=== PATIENT | male | born 1955 | race Hispanic/Latino ===

== ENCOUNTER 2019-11-19 10:09 | Inpatient (IN) | payer MEDICARE, OTHER ==
[~2019-11-19] VITALS: Ht 160 cm; Wt 70.3 kg
[2019-11-19] MEDS ORDERED: SODIUM CHLORIDE 0.9% 1000ML 1,000 ML IV STA (10:11)
[2019-11-19] MEDS ORDERED: ONDANSETRON HCL INJ 2MG/ML 2ML 2 MG/ML VIAL IV STA (10:11)
--- OUTSIDE RECORDS SUMMARY | 2019-11-19 10:12 | XMS REPORT ---
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 Allergies, Adverse Reactions, Alerts Allergy Name Allergy Type Status Severity Reaction(s) Onset Date Inactive Date Treating Clinician Comments No Known Allergies DA Active U 2019-01-23 00:00:00 Medications This patient has no known medications. Results Test Description Test Time Test Comments Text Results Atomic Results Result Comments GLUBED 2019-01-26 12:17:00 GLUBED (test code=GLUBED) 126 mg/dL 74-106 Performed by certified coal equipment operator at [facility] [id number] 08:03:00* Test Item Value Reference Range Comments GLUBED (test code=GLUBED) 163 mg/dL 74-106 Performed by certified coal equipment operator at [facility] [id number] 20:29:00* Test Item Value Reference Range Comments GLUBED (test code=GLUBED) 173 mg/dL 74-106 Performed by certified coal equipment operator at [facility] [id number] 16:41:00* Test Item Value Reference Range Comments GLUBED (test code=GLUBED) 140 mg/dL 74-106 Performed by certified coal equipment operator at [facility] [id number] 12:50:00* Test Item Value Reference Range Comments GLUBED (test code=GLUBED) 189 mg/dL 74-106 Performed by certified coal equipment operator at [facility] [id number] 08:22:00* Test Item Value Reference Range Comments GLUBED (test code=GLUBED) 129 mg/dL 74-106 Performed by certified coal equipment operator at [facility] BASIC METABOLIC [id number] 07:55:00* Test Item Value Reference Range Comments SODIUM (test code=NA) 137 mmol/L 136-145 POTASSIUM (test code=K) 3.2 mmol/L 3.5-5.1 CHLORIDE (test code=CL) 107.0 mmol/L 98-107 CARBON DIOXIDE (test code=CO2) 19.0 mmol/L 21-32 ANION GAP (test code=GAP) 14.2 10-20 GLUCOSE (test code=GLU) 126 mg/dL 74-106 BLOOD UREA NITROGEN (test code=BUN) 12 mg/dL 7-18 GLOMERULAR FILTRATION RATE (test code=GFR) > 60 mL/min >=60 Estimated GFR by using Modified MDRD formula.Chronic kidney disease is defined as either kidney damageor GFR <60 mL/min/1.73 m2 for >3 months. CREATININE (test code=CREAT) 1.00 mg/dL 0.7-1.3 BUN/CREATININE RATIO (test code=BUN/CREA) 12.0 10-20 CALCIUM (test code=CA) 8.3 mg/dL 8.5-10.1 BASIC METABOLIC [id number] 07:38:00* Test Item Value Reference Range Comments SODIUM (test code=NA) 137 mmol/L 136-145 POTASSIUM (test code=K) 3.2 mmol/L 3.5-5.1 CHLORIDE (test code=CL) 107.0 mmol/L 98-107 CARBON DIOXIDE (test code=CO2) mmol/L 21-32 ANION GAP (test code=GAP) 10-20 GLUCOSE (test code=GLU) mg/dL 74-106 BLOOD UREA NITROGEN (test code=BUN) mg/dL 7-18 GLOMERULAR FILTRATION RATE (test code=GFR) mL/min >=60 CREATININE (test code=CREAT) mg/dL 0.7-1.3 BUN/CREATININE RATIO (test code=BUN/CREA) 10-20 CALCIUM (test code=CA) 8.3 mg/dL 8.5-10.1 CBC W/AUTO [id number] 07:04:00* Test Item Value Reference Range Comments WHITE BLOOD CELL (test code=WBC) 10.1 K/mm3 4.5-12.5 RED BLOOD CELL (test code=RBC) 4.73 mill/mm3 4.0-5.8 HEMOGLOBIN (test code=HGB) 16.1 gram/dL 13.0-17.5 RESULT VERIFIED BY REPEAT ANALYSIS HEMATOCRIT (test code=HCT) 45.7 % 42.0-52.0 MEAN CELL VOLUME (test code=MCV) 96.6 fL 80-98 MEAN CELL HGB (test code=MCH) 34.0 picogram 27.0-33.0 MEAN CELL HGB CONCETRATION (test code=MCHC) 35.2 gram/dL 33.0-36.0 RED CELL DISTRIBUTION WIDTH (test code=RDW) 11.8 % 11.6-16.2 RED CELL DISTRIBUTION WIDTH SD (test code=RDW-SD) 42.0 fL 37.0-51.0 PLATELET COUNT (test code=PLT) 179 K/mm3 150-450 MEAN PLATELET VOLUME (test code=MPV) 10.4 fL 6.7-11.0 NEUTROPHIL % (test code=NT%) 73.5 % 39.0-69.0 IMMATURE GRANULOCYTE % (test code=IG%) 0.7 % 0.0-5.0 LYMPHOCYTE % (test code=LY%) 10.8 % 25.0-55.0 MONOCYTE % (test code=MO%) 14.0 % 0.0-10.0 EOSINOPHIL % (test code=EO%) 0.7 % 0.0-5.0 BASOPHIL % (test code=BA%) 0.3 % 0.0-1.0 NUCLEATED RBC % (test code=NRBC%) 0.0 % 0-0 NEUTROPHIL # (test code=NT#) 7.43 K/mm3 1.8-7.7 IMMATURE GRANULOCYTE # (test code=IG#) 0.07 x10 3/uL 0-0.03 LYMPHOCYTE # (test code=LY#) 1.09 K/mm3 1.0-5.0 MONOCYTE # (test code=MO#) 1.41 K/mm3 0-0.8 EOSINOPHIL # (test code=EO#) 0.07 K/mm3 0.0-0.5 BASOPHIL # (test code=BA#) 0.03 K/mm3 0.0-0.2 NUCLEATED RBC # (test code=NRBC#) 0.00 K/mm3 0.0-0.1 MANUAL DIFF REQUIRED (test code=MDIFF) NO [id number] 21:08:00* Test Item Value Reference Range Comments GLUBED (test code=GLUBED) 187 mg/dL 74-106 Performed by certified coal equipment operator at [facility] [id number] 17:16:00* Test Item Value Reference Range Comments GLUBED (test code=GLUBED) 165 mg/dL 74-106 Performed by certified coal equipment operator at [facility] [id number] 12:20:00* Test Item Value Reference Range Comments GLUBED (test code=GLUBED) 210 mg/dL 74-106 Performed by certified coal equipment operator at [facility] [id number] 08:55:00* Test Item Value Reference Range Comments GLUBED (test code=GLUBED) 149 mg/dL 74-106 Performed by certified coal equipment operator at [facility] AG STREPTOCOCCUS [id number] 06:22:00* Test Item Value Reference Range Comments AG STREPTOCOCCUS PNEUMO (test code=STREPPNAG) NEGATIVE NEGATIVE LEGIONELLA ANTIGEN,URINE,[id number] 06:22:00* Test Item Value Reference Range Comments LEGIONELLA ANTIGEN,URINE,JUSTICE (test code=LEGAGUR) NEGATIVE NEGATIVE URINALYSIS [id number] 03:45:00* Test Item Value Reference Range Comments UA COLOR (test code=COLU) YELLOW YELLOW UA APPEARANCE (test code=APPU) CLEAR CLEAR UA GLUCOSE DIPSTICK (test code=DGLUU) NEGATIVE mg/dL NEGATIVE UA BILIRUBIN DIPSTICK (test code=BILU) NEGATIVE mg/dL NEGATIVE UA KETONE DIPSTICK (test code=KETU) NEGATIVE mg/dL NEGATIVE UA SPECIFIC GRAVITY (test code=SGU) 1.011 1.001-1.035 UA BLOOD DIPSTICK (test code=NASRA) 2+ (Moderate) mg/dL NEGATIVE UA PH DIPSTICK (test code=MAMADOU) 5.0 5.0-8.0 UA PROTEIN DIPSTICK (test code=PROU) 30 (1+) mg/dL NEGATIVE UA UROBILINIOGEN DIPSTICK (test code=URO) NEGATIVE mg/dL NEGATIVE UA NITRITE DIPSTICK (test code=NADEGE) NEGATIVE NEGATIVE UA LEUKOCYTE ESTERASE DIPSTICK (test code=LEUU) 1+ uL NEGATIVE UA WBC (test code=WBCU) >50 per HPF 0-5 UA RBC (test code=RBCU) 3-5 #/HPF 0-5 UA EPITHELIAL CELLS (test code=EPIU) FEW per HPF FEW UA BACTERIA (test code=BACU) FEW #/HPF NONE UA MUCUS (test code=MUCU) FEW #/LPF FEW Urine Source? Clean CatchURINALYSIS [id number] 03:08:00* Test Item Value Reference Range Comments UA COLOR (test code=COLU) YELLOW YELLOW UA APPEARANCE (test code=APPU) CLEAR CLEAR UA GLUCOSE DIPSTICK (test code=DGLUU) NEGATIVE mg/dL NEGATIVE UA BILIRUBIN DIPSTICK (test code=BILU) NEGATIVE mg/dL NEGATIVE UA KETONE DIPSTICK (test code=KETU) NEGATIVE mg/dL NEGATIVE UA SPECIFIC GRAVITY (test code=SGU) 1.011 1.001-1.035 UA BLOOD DIPSTICK (test code=NASRA) 2+ (Moderate) mg/dL NEGATIVE UA PH DIPSTICK (test code=MAMADOU) 5.0 5.0-8.0 UA PROTEIN DIPSTICK (test code=PROU) 30 (1+) mg/dL NEGATIVE UA UROBILINIOGEN DIPSTICK (test code=URO) NEGATIVE mg/dL NEGATIVE UA NITRITE DIPSTICK (test code=NADEGE) NEGATIVE NEGATIVE UA LEUKOCYTE ESTERASE DIPSTICK (test code=LEUU) uL NEGATIVE UA WBC (test code=WBCU) >50 per HPF 0-5 UA RBC (test code=RBCU) 3-5 #/HPF 0-5 UA EPITHELIAL CELLS (test code=EPIU) FEW per HPF FEW UA BACTERIA (test code=BACU) FEW #/HPF NONE UA MUCUS (test code=MUCU) FEW #/LPF FEW Urine Source? Clean [id number] 23:11:00* Test Item Value Reference Range Comments TROPONIN-I (test code=TROPI) 0.294 ng/mL 0-0.045 Results called to [id number] by PAUL.[email or web address] 01/23/19 2310Critical results verified and read back by Nurse? Y COMMENTS TO SKID MAN: COLLECT 3 HOURS AFTER PREVIOUS [id number] 22:52:00* Test Item Value Reference Range Comments GLYCOSYLATED HEMOGLOBIN (HA1C) (test code=GLYHGB) 7.0 % HbA1 4.8-6.0 ESTIMATED AVERAGE GLUCOSE (test code=EAG) 154 MG/DL [id number] 21:24:00* Test Item Value Reference Range Comments GLUBED (test code=GLUBED) 150 mg/dL 74-106 Performed by certified coal equipment operator at [facility] LIPID PROFILE (CORONARY RISK)2019-01-23 21:17:00* Test Item Value Reference Range Comments TRIGLYCERIDES (test code=TRIG) 96 mg/dL 20-150 CHOLESTEROL (test code=CHOL) 118 mg/dL 0-200 CHOLESTEROL/HDL RATIO (test code=CHOLHDL) 3.0 RATIO 0-4.9 RISK ASSOCIATED WITH CHOL/HDL RATIOS: Risk Male Female1/2 AVERAGE 3.43 3.27AVERAGE 4.97 4.442X AVERAGE 9.55 7.053X AVERAGE 23.39 11.04 REFERENCE VALUE IS RELATED TO RISK LEVELS ASRECOMMENDED BY THE [facility]. HEART, LUNG, AND BLOOD INST. HDL CHOLESTEROL (test code=HDL) 39 mg/dL 40-60 LIPOPROTEIN LDL (test code=LDL) 62 mg/dL 100-129 Reference Interval: mg/dL mmol/L Optimal <100 <2.6Near/above optimal 100-129 2.6- 3.3Borderline High 130-159 3.4-4.1High 160-189 4.1-4.9Very High >=190 >=4.9=========This LDL result is a direct measurement.========= LACTIC [id number] 17:22:00* Test Item Value Reference Range Comments LACTIC ACID (test code=LACT) 1.4 MMOL/L 0.4-1.9 [id number] 17:22:00* Test Item Value Reference Range Comments TROPONIN-I (test code=TROPI) 0.18 ng/mL 0.00-0.056 Results called to ROBERTH VenturaLAB.AV1 01/23/19 1722Critical results verified and read back by Nurse? Y COMMENTS TO SKID MAN: COLLECT 3 HOURS AFTER PREVIOUS SAMPLEPROCALCITONIN (PCT)2019-01-23 16:38:00* Test Item Value Reference Range Comments PROCALCITONIN (PCT) (test code=PROCAL) 0.22 ng/ml Concentration Interpretation (ng/mL) <0.51 Sepsis is not likely. Local bacterial infection is possible. (LOW RISK for progression to Sepsis) 0.51 - 2.00 Sepsis is possible, but other conditions are known to elevate PCT as well. (MODERATE RISK for progression to Sepsis) > 2.00 Sepsis is likely, unless other causes are known. (HIGH RISK for progression to Severe Sepsis or Septic Shock) 10.00 High likelihood of Severe Sepsis or Septic or higher Shock. *Increased PCT levels may not always be related to systemic bacterial infection.*Low PCT levels do not automatically exclude the presence of bacterial infection.*All results should be interpreted taking into account the patients history. CBC W/MANUAL [id number] 15:02:00* Test Item Value Reference Range Comments WHITE BLOOD CELL (test code=WBC) 12.0 K/mm3 4.5-12.5 RED BLOOD CELL (test code=RBC) 5.48 mill/mm3 4.0-5.8 HEMOGLOBIN (test code=HGB) 18.8 gram/dL 13.0-17.5 HEMATOCRIT (test code=HCT) 52.2 % 42.0-52.0 MEAN CELL VOLUME (test code=MCV) 95.3 fL 80-98 MEAN CELL HGB (test code=MCH) 34.3 picogram 27.0-33.0 MEAN CELL HGB CONCETRATION (test code=MCHC) 36.0 gram/dL 33.0-36.0 RED CELL DISTRIBUTION WIDTH (test code=RDW) 12.1 % 11.6-16.2 RED CELL DISTRIBUTION WIDTH SD (test code=RDW-SD) 41.6 fL 39.2-49.5 PLATELET COUNT (test code=PLT) 219 K/mm3 150-450 MEAN PLATELET VOLUME (test code=MPV) 10.2 fL 6.7-11.0 NEUTROPHIL # (test code=NT#) 10.48 K/mm3 1.8-7.7 LYMPHOCYTE # (test code=LY#) 0.25 K/mm3 1.0-5.0 MONOCYTE # (test code=MO#) 1.28 K/mm3 0-0.8 EOSINOPHIL # (test code=EO#) 0.01 K/mm3 0.0-0.5 BASOPHIL # (test code=BA#) 0.02 K/mm3 0.0-0.2 MANUAL DIFF REQUIRED (test code=MDIFF) YES STAIN ACCEPTABILITY (test code=STN ACCEPTABLE) STAIN ACCEPTABLE TOTAL CELLS COUNTED (test code=TCC) 100 #CELLS SEGMENTED NEUTROPHILS (test code=SEG) 89 % 39-69 LYMPHOCYTE (test code=LYMPH) 2 % 25-55 MONOCYTE (test code=MON) 9 % 0-10 MORPHOLOGY COMMENT (test code=MOC) NORMAL PLATELET ESTIMATE (test code=PLTEST) ADEQUATE PLATELET MORPHOLOGY (test code=PLTMORPH) SIZE VARIABLE - XR CHEST 1 [id number] 14:46:00 Name: SHOBHA SILVA [facility] : 1955 Age/S:63 /M [address] [facility] Unit#:[id number] Loc: [place] [address] Phys: Tomás Solis MD Dis Date: PHONE #: [phone] Status: REG ER FAX #: [phone] Exam Date: 01/23/2019 Reason: CODE SEPSIS EXAMS: CPT CODE: [id number] XR CHEST 1 V [id number] REASON FOR EXAM: CODE SEPSIS, weakness, dizziness EXAM ORDER DATE: 01/23/2019 2:08 PM Ordering M.D.: Tomás Solis MD PROCEDURE: - XR CHEST 1 V COMPARISON: FINDINGS: Portable AP frontal view of the chest obtained at 2:28 PM shows patchy airspace opacities of the left base. There is no evidence of effusion. The heart size is minimally enlarged. Pulmonary vasculatures are minimally congested. IMP RESSION: Patchy left basilar atelectasis at 1446 Reported and signed by: Prosper Sarmiento M.D. CC: Tomás Solis MD Technologist: SABRINA SALAS, RT(R),CT Trnscrpt Data: 01/23/2019 (1446) t.[email or web address] Orig Print D/T: S: 01/23/2019 (9350) PAGE 1 Signed Report B-TYPE NATRIURETIC [id number] 14:44:00* Test Item Value Reference Range Comments B-TYPE NATRIURETIC PEPTIDE (test code=BNP) 237 pg/mL 0-100 LACTIC [id number] 14:34:00* Test Item Value Reference Range Comments LACTIC ACID (test code=LACT) 2.1 MMOL/L 0.4-1.9 Results called to ROBERTH Short V.LAB.AV1 01/23/19 1434Critical results verified and read back by Nurse? Y BASIC METABOLIC [id number] 14:33:00* Test Item Value Reference Range Comments SODIUM (test code=NA) 133 mmol/L 135-148 POTASSIUM (test code=K) 3.3 mmol/L 3.5-5.1 CHLORIDE (test code=CL) 99 mmol/L 101-109 CARBON DIOXIDE (test code=CO2) 16.9 mmol/L 21-32 ANION GAP (test code=GAP) 20 mmol/L 10-20 GLUCOSE (test code=GLU) 250 mg/dL 74-106 BLOOD UREA NITROGEN (test code=BUN) 10 mg/dL 3-21 GLOMERULAR FILTRATION RATE (test code=GFR) 46 mL/min >=60 Estimated GFR by using Modified MDRD formula.Chronic kidney disease is defined as either kidney damageor GFR <60 mL/min/1.73 m2 for >3 months. CREATININE (test code=CREAT) 1.52 mg/dL 0.55-1.3 BUN/CREATININE RATIO (test code=BUN/CREA) 6.6 10-20 CALCIUM (test code=CA) 8.7 mg/dL 8.4-10.2 HEPATIC FUNCTION [id number] 14:33:00* Test Item Value Reference Range Comments TOTAL PROTEIN (test code=PROT) 8.5 g/dL 6.5-8.4 ALBUMIN (test code=ALB) 3.4 g/dL 3.4-4.8 GLOBULIN (test code=GLOB) 5.1 G/DL 1-10 ALBUMIN/GLOBULIN RATIO (test code=A/G) 0.7 RATIO 0.75-1.50 BILIRUBIN TOTAL (test code=BILT) 0.80 mg/dL 0.0-1.0 BILIRUBIN DIRECT (test code=BILD) 0.20 mg/dL 0.0-0.30 SGOT/AST (test code=AST) 45 U/L 6-32 SGPT/ALT (test code=ALT) 87 U/L 12-78 Note: Change in REFERENCE RANGE due to new reagent method. ALKALINE PHOSPHATASE TOTAL (test code=ALKP) 89 U/L 38-126 [id number] 14:33:00* Test Item Value Reference Range Comments LIPASE (test code=LIP) 165 U/L 128-270 [id number] 14:33:00* Test Item Value Reference Range Comments TROPONIN-I (test code=TROPI) 0.19 ng/mL 0.00-0.056 Results called to ROBERTH VenturaLAB.AV1 01/23/19 1433Critical results verified and read back by Nurse? Y CBC W/MANUAL [id number] 14:25:00* Test Item Value Reference Range Comments WHITE BLOOD CELL (test code=WBC) 12.0 K/mm3 4.5-12.5 RED BLOOD CELL (test code=RBC) 5.48 mill/mm3 4.0-5.8 HEMOGLOBIN (test code=HGB) 18.8 gram/dL 13.0-17.5 HEMATOCRIT (test code=HCT) 52.2 % 42.0-52.0 MEAN CELL VOLUME (test code=MCV) 95.3 fL 80-98 MEAN CELL HGB (test code=MCH) 34.3 picogram 27.0-33.0 MEAN CELL HGB CONCETRATION (test code=MCHC) 36.0 gram/dL 33.0-36.0 RED CELL DISTRIBUTION WIDTH (test code=RDW) 12.1 % 11.6-16.2 RED CELL DISTRIBUTION WIDTH SD (test code=RDW-SD) 41.6 fL 39.2-49.5 PLATELET COUNT (test code=PLT) 219 K/mm3 150-450 MEAN PLATELET VOLUME (test code=MPV) 10.2 fL 6.7-11.0 NEUTROPHIL # (test code=NT#) 10.48 K/mm3 1.8-7.7 LYMPHOCYTE # (test code=LY#) 0.25 K/mm3 1.0-5.0 MONOCYTE # (test code=MO#) 1.28 K/mm3 0-0.8 EOSINOPHIL # (test code=EO#) 0.01 K/mm3 0.0-0.5 BASOPHIL # (test code=BA#) 0.02 K/mm3 0.0-0.2 MANUAL DIFF REQUIRED (test code=MDIFF) YES STAIN ACCEPTABILITY (test code=STN ACCEPTABLE) TOTAL CELLS COUNTED (test code=TCC) #CELLS SEGMENTED NEUTROPHILS (test code=SEG) % 39-69 LYMPHOCYTE (test code=LYMPH) % 25-55 MONOCYTE (test code=MON) % 0-10 MORPHOLOGY COMMENT (test code=MOC) PLATELET ESTIMATE (test code=PLTEST) PLATELET MORPHOLOGY (test code=PLTMORPH) CBC W/MANUAL [id number] 14:23:00* Test Item Value Reference Range Comments WHITE BLOOD CELL (test code=WBC) 12.0 K/mm3 4.5-12.5 RED BLOOD CELL (test code=RBC) 5.48 mill/mm3 4.0-5.8 HEMOGLOBIN (test code=HGB) 18.8 gram/dL 13.0-17.5 HEMATOCRIT (test code=HCT) 52.2 % 42.0-52.0 MEAN CELL VOLUME (test code=MCV) 95.3 fL 80-98 MEAN CELL HGB (test code=MCH) 34.3 picogram 27.0-33.0 MEAN CELL HGB CONCETRATION (test code=MCHC) 36.0 gram/dL 33.0-36.0 RED CELL DISTRIBUTION WIDTH (test code=RDW) 12.1 % 11.6-16.2 RED CELL DISTRIBUTION WIDTH SD (test code=RDW-SD) 41.6 fL 39.2-49.5 PLATELET COUNT (test code=PLT) 219 K/mm3 150-450 MEAN PLATELET VOLUME (test code=MPV) 10.2 fL 6.7-11.0 NEUTROPHIL # (test code=NT#) 10.48 K/mm3 1.8-7.7 LYMPHOCYTE # (test code=LY#) 0.25 K/mm3 1.0-5.0 MONOCYTE # (test code=MO#) 1.28 K/mm3 0-0.8 EOSINOPHIL # (test code=EO#) 0.01 K/mm3 0.0-0.5 BASOPHIL # (test code=BA#) 0.02 K/mm3 0.0-0.2 MANUAL DIFF REQUIRED (test code=MDIFF) YES STAIN ACCEPTABILITY (test code=STN ACCEPTABLE) TOTAL CELLS COUNTED (test code=TCC) #CELLS SEGMENTED NEUTROPHILS (test code=SEG) % 39-69 LYMPHOCYTE (test code=LYMPH) % 25-55 MONOCYTE (test code=MON) % 0-10 EOSINOPHIL (test code=EOS) % 0.0-5.0 CABOT RINGS (test code=CAB) MORPHOLOGY COMMENT (test code=MOC) PLATELET ESTIMATE (test code=PLTEST) PLATELET MORPHOLOGY (test code=PLTMORPH) CBC W/MANUAL [id number] 14:23:00* Test Item Value Reference Range Comments WHITE BLOOD CELL (test code=WBC) 12.0 K/mm3 4.5-12.5 RED BLOOD CELL (test code=RBC) 5.48 mill/mm3 4.0-5.8 HEMOGLOBIN (test code=HGB) 18.8 gram/dL 13.0-17.5 HEMATOCRIT (test code=HCT) 52.2 % 42.0-52.0 MEAN CELL VOLUME (test code=MCV) 95.3 fL 80-98 MEAN CELL HGB (test code=MCH) 34.3 picogram 27.0-33.0 MEAN CELL HGB CONCETRATION (test code=MCHC) 36.0 gram/dL 33.0-36.0 RED CELL DISTRIBUTION WIDTH (test code=RDW) 12.1 % 11.6-16.2 RED CELL DISTRIBUTION WIDTH SD (test code=RDW-SD) 41.6 fL 39.2-49.5 PLATELET COUNT (test code=PLT) 219 K/mm3 150-450 MEAN PLATELET VOLUME (test code=MPV) 10.2 fL 6.7-11.0 NEUTROPHIL # (test code=NT#) 10.48 K/mm3 1.8-7.7 LYMPHOCYTE # (test code=LY#) 0.25 K/mm3 1.0-5.0 MONOCYTE # (test code=MO#) 1.28 K/mm3 0-0.8 EOSINOPHIL # (test code=EO#) 0.01 K/mm3 0.0-0.5 BASOPHIL # (test code=BA#) 0.02 K/mm3 0.0-0.2 MANUAL DIFF REQUIRED (test code=MDIFF) YES STAIN ACCEPTABILITY (test code=STN ACCEPTABLE) TOTAL CELLS COUNTED (test code=TCC) #CELLS SEGMENTED NEUTROPHILS (test code=SEG) % 39-69 LYMPHOCYTE (test code=LYMPH) % 25-55 MONOCYTE (test code=MON) % 0-10 EOSINOPHIL (test code=EOS) % 0.0-5.0 CABOT RINGS (test code=CAB) MORPHOLOGY COMMENT (test code=MOC) PLATELET ESTIMATE (test code=PLTEST) PLATELET MORPHOLOGY (test code=PLTMORPH) CBC W/MANUAL [id number] 14:23:00* Test Item Value Reference Range Comments WHITE BLOOD CELL (test code=WBC) 12.0 K/mm3 4.5-12.5 RED BLOOD CELL (test code=RBC) 5.48 mill/mm3 4.0-5.8 HEMOGLOBIN (test code=HGB) 18.8 gram/dL 13.0-17.5 HEMATOCRIT (test code=HCT) 52.2 % 42.0-52.0 MEAN CELL VOLUME (test code=MCV) 95.3 fL 80-98 MEAN CELL HGB (test code=MCH) 34.3 picogram 27.0-33.0 MEAN CELL HGB CONCETRATION (test code=MCHC) 36.0 gram/dL 33.0-36.0 RED CELL DISTRIBUTION WIDTH (test code=RDW) 12.1 % 11.6-16.2 RED CELL DISTRIBUTION WIDTH SD (test code=RDW-SD) 41.6 fL 39.2-49.5 PLATELET COUNT (test code=PLT) 219 K/mm3 150-450 MEAN PLATELET VOLUME (test code=MPV) 10.2 fL 6.7-11.0 NEUTROPHIL # (test code=NT#) 10.48 K/mm3 1.8-7.7 LYMPHOCYTE # (test code=LY#) 0.25 K/mm3 1.0-5.0 MONOCYTE # (test code=MO#) 1.28 K/mm3 0-0.8 EOSINOPHIL # (test code=EO#) 0.01 K/mm3 0.0-0.5 BASOPHIL # (test code=BA#) 0.02 K/mm3 0.0-0.2 MANUAL DIFF REQUIRED (test code=MDIFF) YES STAIN ACCEPTABILITY (test code=STN ACCEPTABLE) TOTAL CELLS COUNTED (test code=TCC) #CELLS SEGMENTED NEUTROPHILS (test code=SEG) % 39-69 LYMPHOCYTE (test code=LYMPH) % 25-55 MONOCYTE (test code=MON) % 0-10 EOSINOPHIL (test code=EOS) % 0.0-5.0 MORPHOLOGY COMMENT (test code=MOC) PLATELET ESTIMATE (test code=PLTEST) PLATELET MORPHOLOGY (test code=PLTMORPH) CBC W/MANUAL [id number] 14:23:00* Test Item Value Reference Range Comments WHITE BLOOD CELL (test code=WBC) 12.0 K/mm3 4.5-12.5 RED BLOOD CELL (test code=RBC) 5.48 mill/mm3 4.0-5.8 HEMOGLOBIN (test code=HGB) 18.8 gram/dL 13.0-17.5 HEMATOCRIT (test code=HCT) 52.2 % 42.0-52.0 MEAN CELL VOLUME (test code=MCV) 95.3 fL 80-98 MEAN CELL HGB (test code=MCH) 34.3 picogram 27.0-33.0 MEAN CELL HGB CONCETRATION (test code=MCHC) 36.0 gram/dL 33.0-36.0 RED CELL DISTRIBUTION WIDTH (test code=RDW) 12.1 % 11.6-16.2 RED CELL DISTRIBUTION WIDTH SD (test code=RDW-SD) 41.6 fL 39.2-49.5 PLATELET COUNT (test code=PLT) 219 K/mm3 150-450 MEAN PLATELET VOLUME (test code=MPV) 10.2 fL 6.7-11.0 NEUTROPHIL # (test code=NT#) 10.48 K/mm3 1.8-7.7 LYMPHOCYTE # (test code=LY#) 0.25 K/mm3 1.0-5.0 MONOCYTE # (test code=MO#) 1.28 K/mm3 0-0.8 EOSINOPHIL # (test code=EO#) 0.01 K/mm3 0.0-0.5 BASOPHIL # (test code=BA#) 0.02 K/mm3 0.0-0.2 MANUAL DIFF REQUIRED (test code=MDIFF) YES STAIN ACCEPTABILITY (test code=STN ACCEPTABLE) TOTAL CELLS COUNTED (test code=TCC) #CELLS SEGMENTED NEUTROPHILS (test code=SEG) % 39-69 LYMPHOCYTE (test code=LYMPH) % 25-55 MONOCYTE (test code=MON) % 0-10 EOSINOPHIL (test code=EOS) % 0.0-5.0 CABOT RINGS (test code=CAB) MORPHOLOGY COMMENT (test code=MOC) PLATELET ESTIMATE (test code=PLTEST) PLATELET MORPHOLOGY (test code=PLTMORPH) [id number] 14:05:00* Test Item Value Reference Range Comments GLUBED (test code=GLUBED) 248 mg/dL 74-106 Performed by certified coal equipment operator [facility] Not[facility]~Notified Nurse~
[2019-11-19] MEDS ORDERED: DIATRIZOATE MEGL/DIATRIZOA SOD 30 ML BTL PO ONE (10:22)
[2019-11-19] MEDS ORDERED: DICYCLOMINE HCL 20 MG/2 ML VIAL IM ONE (10:30)
[2019-11-19 11:11] LABS: BASOPHILS # (AUTO) 0.1 (0.0-0.1); BASOPHILS % 0.4 % (0.0-1.0); EOSINOPHILS # (AUTO) 0.1 (0.0-0.4); EOSINOPHILS % 0.6 % (0.0-6.0); HEMATOCRIT 47.4 % (38.2-49.6); HEMOGLOBIN 17.2 g/dL (14.0-18.0); LYMPHOCYTES # (AUTO) 0.6 (1.0-3.2); LYMPHOCYTES % 4.3 % (18.0-39.1); MEAN CORPUSCULAR HGB CONC 36.3 g/dL (31-35); MEAN CORPUSCULAR VOLUME 90.8 fL (81-99); MONOCYTES # (AUTO) 2.3 (0.2-0.8); MONOCYTES % 16.6 % (4.4-11.3); NEUTROPHILS # (AUTO) 10.6 (2.1-6.9); PLATELET COUNT 231 x10e3/uL (140-360); RED BLOOD COUNT 5.22 x10e6/uL (4.3-5.7)
[2019-11-19 11:41] LABS: ALBUMIN 2.4 g/dL (3.5-5.0); ALBUMIN/GLOBULIN RATIO 0.5 (0.8-2.0); ANION GAP 16.5 mmol/L (8-16); CALCIUM 8.7 mg/dL (8.4-10.2); CREATININE, SERUM 2.28 mg/dL (0.72-1.25); POTASSIUM 3.5 mmol/L (3.5-5.1)
[2019-11-19 12:42] LABS: CLARITY,URINE CLOUDY (CLEAR); COLOR,URINE YELLOW (YELLOW)
[2019-11-19 12:45] LABS: LEUKOCYTE ESTERASE ,URINE LARGE (NEGATIVE); NITRITE,URINE NEGATIVE (NEGATIVE)
[2019-11-19 12:48] LABS: KETONES,URINE NEGATIVE (NEGATIVE); PROTEIN,URINE DIPSTICK 1+ (NEGATIVE)
[2019-11-19 12:49] LABS: BILIRUBIN,URINE NEGATIVE (NEGATIVE); URINE UROBILINOGEN 0.2 mg/dL (0.2 - 1)
--- NOTE | 2019-11-19 12:50 | Diagnostic Imaging Report ---
EXAM: CT Abdomen and Pelvis WITHOUT intravenous contrast INDICATION: Abdominal pain COMPARISON: None. TECHNIQUE: Abdomen and pelvis were scanned utilizing a multidetector helical scanner from the lung base to the pubic symphysis without administration of IV contrast. Coronal and sagittal reformations were obtained. IV CONTRAST: None ORAL CONTRAST: Gastrografin COMPLICATIONS: None RADIATION DOSE: Total DLP: 362.7 mGy*cm Dose modulation, iterative reconstruction, and/or weight based adjustment of the mA/kV was utilized to reduce the radiation dose to as low as reasonably achievable. FINDINGS: LOWER THORAX: Scattered atherosclerotic coronary artery calcifications. HEPATOBILIARY: No focal liver lesion. Unremarkable gallbladder. SPLEEN: No splenomegaly. PANCREAS: No focal masses or ductal dilatation. ADRENALS: No adrenal nodules. KIDNEYS/URETERS: No hydronephrosis or renal calculi. Right lower pole exophytic 2.9 cm renal cyst. No solid mass lesions. PELVIC ORGANS/BLADDER: Unremarkable. PERITONEUM / RETROPERITONEUM: No free air or fluid. LYMPH NODES: No lymphadenopathy. VESSELS: Scattered atherosclerotic calcifications of the nonaneurysmal abdominal aorta and major branches. GI TRACT: Sigmoid and distal descending colon diverticulosis without CT evidence of diverticulitis. No abnormal bowel thickening. No bowel obstruction. BONES AND SOFT TISSUES: No acute osseous injury. No suspicious lytic or blastic lesions. IMPRESSION: No acute findings in the abdomen or pelvis. Specifically, no evidence of small bowel obstruction. Signed by: Cole Hernandez MD on 11/19/2019 12:47 PM
[2019-11-19 12:56] LABS: BACTERIA,URINE MANY /HPF; EPITHELIAL CELLS,URINE FEW /LPF; WBC,URINE (MAN) >50 /HPF (0-5)
[2019-11-19] MEDS ORDERED: ONDANSETRON HCL INJ 2MG/ML 2ML 2 MG/ML VIAL IV PRN (13:15)
[2019-11-19] MEDS: CEFTRIAXONE SOD 1 GM/NS 50 ML 50 ML IV SCH (13:52)
[2019-11-19] MEDS: SODIUM CHLORIDE 0.9% 1000ML 1,000 ML IV SCH (13:52)
[2019-11-19 19:10] LABS: CREATINE KINASE MB 2.4 ng/mL (0-5.0)
[2019-11-19 20:00] VITALS: BP 184/89
--- NOTE | 2019-11-19 20:01 | NUR ---
H&P cc: constipation HPI: 64yoM, PCP none, developed constipatoin and lower abdominal pain. Some nausea; came to ED for eval. PMH: HTN, cig use PSHx: none Allergies; none FH/SH: ; 1/4ppd cigs; no illicits Meds; see MAR ROS: no f/c/s/SOB/cp/leg pain/no back pain/confusion/focal limb weakness. v/s; revd PE: tired appearing anicteirc ns1s2 mod bs soft nd; mild tenderness lower abdomen no e/t skin dry flat affect a&ox3; allred labs/meds revd A/P: 64yoM Constipation TOBI Dehydration UTI Hyponatremia Metabolic acidosis PLAN IVF; bicarbs; Bowel regimen; IV abx; f/u cx; Check labs in am. SCD/pepcitamera Pulido MD, PhD.
--- NOTE | 2019-11-19 20:08 | NUR ---
RECEIVE DPT IN BED AOX3 .RESPIRATIONS ARE EVEN AND UNLABORED .C/O ABD PAIN CALL LIGHT WITH IN REACH.CONTINUE TO MONITOR
[2019-11-19] MEDS: SODIUM BICARBONATE 650 MG TAB PO SCH (21:39)
[2019-11-19] MEDS: DOCUSATE SODIUM 100 MG CAP PO SCH (21:39)
[2019-11-19 22:38] VITALS: BP 184/89
[2019-11-20] VITALS (8 sets, daily range): BP systolic 134–175; BP diastolic 73–88
[2019-11-20] MEDS: CEFTRIAXONE SOD 1 GM/NS 50 ML 50 ML IV SCH ×2 (02:10→13:00)
[2019-11-20] MEDS: SODIUM CHLORIDE 0.9% 1000ML 1,000 ML IV SCH (02:10)
[2019-11-20 03:17] LABS: CREATINE KINASE MB 1.5 ng/mL (0-5.0)
[2019-11-20 05:58] LABS: BASOPHILS # (AUTO) 0.1 (0.0-0.1); BASOPHILS % 0.5 % (0.0-1.0); EOSINOPHILS # (AUTO) 0.1 (0.0-0.4); EOSINOPHILS % 0.8 % (0.0-6.0); HEMATOCRIT 42.2 % (38.2-49.6); LYMPHOCYTES # (AUTO) 1.1 (1.0-3.2); LYMPHOCYTES % 7.7 % (18.0-39.1); MEAN CORPUSCULAR HEMOGLOBIN 32.8 pg (28-32); MEAN CORPUSCULAR HGB CONC 35.5 g/dL (31-35); MEAN CORPUSCULAR VOLUME 92.1 fL (81-99); MONOCYTES % 14.1 % (4.4-11.3); NEUTROPHILS # (AUTO) 10.8 (2.1-6.9); NEUTROPHILS % 74.5 % (38.7-80.0); PLATELET COUNT 257 x10e3/uL (140-360); RED BLOOD COUNT 4.58 x10e6/uL (4.3-5.7); RED CELL DISTRIBUTION WIDTH 12.2 % (11.7-14.4)
[2019-11-20 06:17] LABS: ALBUMIN 1.9 g/dL (3.5-5.0); ALBUMIN/GLOBULIN RATIO 0.5 (0.8-2.0); ANION GAP 13.6 mmol/L (8-16); CALCIUM 7.8 mg/dL (8.4-10.2); CREATININE, SERUM 1.91 mg/dL (0.72-1.25); POTASSIUM 3.6 mmol/L (3.5-5.1)
--- NOTE | 2019-11-20 06:29 | NUR ---
PT RESTED DURING THE NIGHT .DENIES PAIN .CALL LIGHT WITH IN REACH .CONTINUE TO MONITOR
[2019-11-20 06:54] LABS: CREATINE KINASE MB 1.8 ng/mL (0-5.0)
--- NOTE | 2019-11-20 07:00 | NUR ---
IM- progress note O/N see below ROS: no f/c/s/SOB/cp/leg pain/no back pain/confusion/focal limb weakness. v/s; revd PE: tired appearing anicteirc ns1s2 mod bs soft nd; mild tenderness lower abdomen no e/t skin dry flat affect a&ox3; allred labs/meds revd A/P: 64yoM Constipation TOBI Dehydration UTI Hyponatremia Metabolic acidosis PLAN IVF; bicarbs; Bowel regimen; IV abx; f/u cx; Check labs in am. SCD/pepcid 1-30 treat hyponatremia and dehydration and metabolic acidosis; Christos Pulido MD, PhD.
--- NOTE | 2019-11-20 07:20 | NUR ---
PATIENT IS ALERT, AWAKE, AND IN STABLE CONDITION WITH NO S/S OF RESPIRATORY DISTRESS. NO PAIN VOICED. IV FLUIDS INFUSING. CALL LIGHT IS WITHIN REACH, PATIENT INSTRUCTED TO CALL FOR ASSISTANCE NEEDED.
--- NOTE | 2019-11-20 07:41 | NUR ---
BEDSIDE REPORT GIVEN TO THE ONCOMING NURSE
[2019-11-20] MEDS: SENNOSIDES 8.6 MG TAB PO SCH ×2 (09:02→16:17)
[2019-11-20] MEDS: MULTIVITAMINS/MINERALS TAB PO SCH (09:02)
[2019-11-20] MEDS: DOCUSATE SODIUM 100 MG CAP PO SCH ×2 (09:02→16:17)
[2019-11-20] MEDS: SODIUM CHLORIDE 1 GM TAB PO SCH ×3 (09:02→21:00)
[2019-11-20] MEDS: SODIUM BICARBONATE 650 MG TAB PO SCH ×2 (09:02→16:17)
[2019-11-20] MEDS: FAMOTIDINE 20 MG TAB PO SCH ×2 (09:02→16:17)
[2019-11-20] MEDS ORDERED: ONDANSETRON HCL 4 MG ORAL DISINTEGRATING TAB PO PRN (14:15)
[2019-11-20 16:25] LABS: ANION GAP 12.7 mmol/L (8-16); CALCIUM 7.9 mg/dL (8.4-10.2); CREATININE, SERUM 1.81 mg/dL (0.72-1.25); POTASSIUM 3.7 mmol/L (3.5-5.1)
--- NOTE | 2019-11-20 19:23 | NUR ---
PATIENT IS IN STABLE CONDITION WITH NO S/S OF RESPIRATORY DISTRESS. NO PAIN VOICED. IV FLUIDS INFUSING. CALL LIGHT IS WITHIN REACH, PATIENT INSTRUCTED TO CALL FOR ASSISTANCE NEEDED. BEDSIDE SHIFT REPORT GIVEN TO ONCOMING NURSE.
--- NOTE | 2019-11-20 19:38 | NUR ---
RECEIVED PT IN BED AOX3 .IV NS IS INFUSING AT 100CC/HR .DENIES PAIN .CALL LIGHT WITH IN REACH .CONTINUE TO MONITOR
[2019-11-21] VITALS (8 sets, daily range): BP systolic 148–187; BP diastolic 73–93
[2019-11-21] MEDS ORDERED: SODIUM CHLORIDE 0.9% 250ML 250 ML ONE ×2 (01:07→09:51)
[2019-11-21] MEDS: CEFTRIAXONE SOD 1 GM/NS 50 ML 50 ML IV SCH (02:32)
--- NOTE | 2019-11-21 06:10 | NUR ---
PT RESTED DURING THE NIGHT .DENIES PAIN PT HAD SHOWER .CALL LIGHT WITH IN REACH .CONTINUE TO MONITOR
[2019-11-21] MEDS: SODIUM CHLORIDE 0.9% 1000ML 1,000 ML IV SCH ×3 (06:30→23:30)
--- NOTE | 2019-11-21 07:19 | NUR ---
B/P WAS HIGH DURING THE NIGHT .CALLED DR BORGES AND GIVEN ORDER TO GIVE TRANDATE 100MG PO .MEDICATED WITH TRANDATE 100 MG PO .BEDSIDE REPORT GIVEN TO THE ONCOMING NURSE
[2019-11-21] MEDS ORDERED: LABETALOL HCL 100 MG TAB PO ONE (07:30)
--- NOTE | 2019-11-21 08:16 | NUR ---
IM- progress note O/N see below ROS: no f/c/s/SOB/cp/leg pain/no back pain/confusion/focal limb weakness. v/s; revd PE: tired appearing anicteirc ns1s2 mod bs soft nd; mild tenderness lower abdomen no e/t skin dry flat affect a&ox3; allred labs/meds revd A/P: 64yoM Constipation TOBI Dehydration UTI Hyponatremia Metabolic acidosis PLAN IVF; bicarbs; Bowel regimen; IV abx; f/u cx; Check labs in am. SCD/pepcid -30 treat hyponatremia and dehydration and metabolic acidosis; 11-21 ESBL E.coli UTI- merrem; IJ needed. Christos Pulido MD, PhD.
[2019-11-21] MEDS: LABETALOL HCL 100 MG TAB PO SCH ×2 (08:53→21:58)
[2019-11-21] MEDS: DOCUSATE SODIUM 100 MG CAP PO SCH ×2 (08:54→16:32)
[2019-11-21] MEDS: FAMOTIDINE 20 MG TAB PO SCH ×2 (08:54→15:50)
[2019-11-21] MEDS: NIFEDIPINE CR 30 MG TAB PO SCH (08:54)
[2019-11-21] MEDS: SODIUM BICARBONATE 650 MG TAB PO SCH ×2 (08:54→16:32)
[2019-11-21] MEDS: SENNOSIDES 8.6 MG TAB PO SCH ×2 (08:54→15:50)
[2019-11-21] MEDS: MULTIVITAMINS/MINERALS TAB PO SCH (08:54)
[2019-11-21] MEDS: SODIUM CHLORIDE 1 GM TAB PO SCH ×3 (08:54→21:57)
[2019-11-21] MEDS: MEROPENEM 500MG/ NS 50ML 50 ML IV SCH ×2 (09:18→21:57)
[2019-11-21] MEDS ORDERED: LIDOCAINE HCL 1% LOCAL INJ 20 ML VIAL ONE (09:51)
--- NOTE | 2019-11-21 10:05 | NUR ---
SINGED CHOICE FOR [facility] FILED IN CHART, PRINTED CLINICALS AND FAXED TO FACILITY [phone], EDUCATED ABOUT [facility], SIGNED, FILED IN CHART, WITH COPY LEFT WITH FAMILY AT BEDSIDE. COMPLETED RTF AN D MADE PACKET FOR NURSES STATION.
[2019-11-21 10:45] LABS: INR 1.36; PROTHROMBIN TIME 17.2 seconds (11.9-14.5)
[2019-11-21 10:46] LABS: PARTIAL THROMBOPLASTIN TIME 36.3 seconds (23.8-35.5)
[2019-11-21] MEDS ORDERED: MIDAZOLAM HCL 2 MG/2 ML VIAL ONE (14:08)
[2019-11-21] MEDS ORDERED: FENTANYL CITRATE/PF 100MCG/2 ML INJ ONE (14:08)
--- NOTE | 2019-11-21 16:45 | Diagnostic Imaging Report ---
Tunneled central line placement, 11/21/2019. History: UTI, need for long-term IV antibiotics. Comparison: None available. Mysql Database Administrator: Dr. Mcgowan. Medication: 5 cc of 1% lidocaine without epinephrine. Conscious sedation: 1 mg Versed, 50 mcg fentanyl IV. Physician intra-service sedation time: 20 minutes. EBL: < 2 cc. Fluoroscopy time: 0.4 minutes. Fluoroscopy dose: 4 mGy (TRE) Specimen: None. Technique: After informed consent and timeout procedure, the access site was prepped and draped with the standard maximal sterile barrier technique. Ultrasound images demonstrated vessel patency. Images were documented within PACS. The skin was anesthetized with lidocaine. The right internal jugular vein was accessed using a micropuncture set with ultrasound guidance. A 0.035-in. wire was advanced through the micropuncture sheath into the vein. The wire was advanced through the atrium into the IVC using fluoroscopic guidance. The right chest was further anesthetized with lidocaine to form the subcutaneous tunnel. The catheter was advanced through the tunnel. The tract was dilated. A peel-away sheath was placed. A 6 Kazakh dual-lumen Powerline catheter was trimmed to the appropriate length and placed into the vessel via the peel-away sheath, which was then removed. Both ports demonstrated normal aspiration and flushing. The catheter was secured with suture. Dressing was applied. The patient tolerated the procedure well without evidence of complication. Postprocedure image demonstrates the line to terminate near the cavoatrial junction. IMPRESSION: Successful tunneled central line placement with ultrasound and fluoroscopic guidance guidance, with conscious sedation. Signed by: Seymour Mcgowan on 11/21/2019 4:42 PM
--- NOTE | 2019-11-21 19:52 | NUR ---
PATIENT IS IN STABLE CONDITION WITH NO S/S OF RESPIRATORY DISTRESS. NO PAIN VOICED. IV FLUIDS INFUSING. IV TO RIGHT AC WAS REMOVED WIT TIP INTACT. CALL LIGHT IS WITHIN REACH- PATIENT INSTRUCTED TO CALL FOR ASSISTANCE NEEDED. BEDSIDE SHIFT REPORT GIVEN TO ONCOMING NURSE.
[2019-11-22] VITALS (7 sets, daily range): BP systolic 143–173; BP diastolic 74–89
--- NOTE | 2019-11-22 02:48 | NUR ---
IM- progress note O/N see below ROS: no f/c/s/SOB/cp/leg pain/no back pain/confusion/focal limb weakness. v/s; revd PE: tired appearing anicteirc ns1s2 mod bs soft nd; mild tenderness lower abdomen no e/t skin dry flat affect a&ox3; allred labs/meds revd A/P: 64yoM Constipation TOBI Dehydration UTI Hyponatremia Metabolic acidosis PLAN IVF; bicarbs; Bowel regimen; IV abx; f/u cx; Check labs in am. SCD/pepcid - treat hyponatremia and dehydration and metabolic acidosis; 11-21 ESBL E.coli UTI- merrem; IJ needed. 11/22 check labs in am. Christos Pulido MD, PhD.
[2019-11-22 06:35] LABS: BASOPHILS # (AUTO) 0.1 (0.0-0.1); BASOPHILS % 0.5 % (0.0-1.0); EOSINOPHILS # (AUTO) 0.3 (0.0-0.4); EOSINOPHILS % 1.6 % (0.0-6.0); HEMOGLOBIN 13.5 g/dL (14.0-18.0); LYMPHOCYTES # (AUTO) 1.2 (1.0-3.2); LYMPHOCYTES % 7.4 % (18.0-39.1); MEAN CORPUSCULAR HEMOGLOBIN 32.8 pg (28-32); MEAN CORPUSCULAR HGB CONC 35.5 g/dL (31-35); MEAN CORPUSCULAR VOLUME 92.2 fL (81-99); MONOCYTES # (AUTO) 1.1 (0.2-0.8); MONOCYTES % 6.9 % (4.4-11.3); NEUTROPHILS # (AUTO) 13.4 (2.1-6.9); NEUTROPHILS % 80.8 % (38.7-80.0); PLATELET COUNT 297 x10e3/uL (140-360); RED BLOOD COUNT 4.12 x10e6/uL (4.3-5.7); RED CELL DISTRIBUTION WIDTH 12.4 % (11.7-14.4)
[2019-11-22 06:54] LABS: ANION GAP 14.7 mmol/L (8-16); CALCIUM 7.7 mg/dL (8.4-10.2); CREATININE, SERUM 1.68 mg/dL (0.72-1.25); POTASSIUM 3.7 mmol/L (3.5-5.1)
[2019-11-22] MEDS: SENNOSIDES 8.6 MG TAB PO SCH ×2 (07:30→16:30)
[2019-11-22] MEDS: DOCUSATE SODIUM 100 MG CAP PO SCH ×2 (09:00→17:00)
[2019-11-22] MEDS: MEROPENEM 500MG/ NS 50ML 50 ML IV SCH ×2 (10:06→21:13)
[2019-11-22] MEDS: FAMOTIDINE 20 MG TAB PO SCH ×2 (10:06→16:23)
[2019-11-22] MEDS: MULTIVITAMINS/MINERALS TAB PO SCH (10:06)
[2019-11-22] MEDS: SODIUM BICARBONATE 650 MG TAB PO SCH ×2 (10:07→16:22)
[2019-11-22] MEDS: NIFEDIPINE CR 30 MG TAB PO SCH (10:07)
[2019-11-22] MEDS: SODIUM CHLORIDE 1 GM TAB PO SCH ×3 (10:07→21:12)
[2019-11-22] MEDS: LABETALOL HCL 100 MG TAB PO SCH ×2 (10:07→21:12)
[2019-11-22] MEDS: SODIUM CHLORIDE 0.9% 1000ML 1,000 ML IV SCH ×2 (12:30→21:13)
[2019-11-22] MEDS ORDERED: ALPRAZOLAM 0.25 MG TAB PO PRN (13:00)
--- NOTE | 2019-11-22 18:44 | NUR ---
patient resting in bed, Alert with no distress, call light in reach, keep monitoring
--- NOTE | 2019-11-22 19:44 | NUR ---
SPOKE TO DR. BORGES REGARDING PATIENT C/O COUGH. NEW ORDER RECEIVED FOR COUGH MEDICINE SCHEDULED.
[2019-11-22] MEDS: GUAIFENESIN/DEXTROMETHORPHAN LIQD 5 ML UDC PO SCH (21:13)
--- NOTE | 2019-11-22 21:57 | NUR ---
NOTIFIED DR. BORGES OF THE SIRS ALERT. SAID TO JUST WATCH PATIENT AND ORDER CHEST XRAY IN THE MORNING.
[2019-11-23] VITALS (8 sets, daily range): BP systolic 151–167; BP diastolic 77–87
[2019-11-23] MEDS: GUAIFENESIN/DEXTROMETHORPHAN LIQD 5 ML UDC PO SCH ×3 (05:30→21:49)
--- NOTE | 2019-11-23 06:07 | Diagnostic Imaging Report ---
EXAMINATION: CHEST SINGLE (PORTABLE) COMPARISON: None INDICATION: Shortness of breath ^COUGH ^[id number] ^0540 DISCUSSION: Frontal view of the chest obtained at 0532 hours. HEART AND MEDIASTINUM: The heart is mildly enlarged. LINES: Right central line terminates in the SVC. LUNGS: Right infrahilar and left perihilar airspace opacities. Poor visualization left diaphragm. PLEURA: Blunting of the left lateral costophrenic angle suggestive of pleural effusion. No pneumothorax BONES AND SOFT TISSUES: Degenerative changes of the spine. No focal osseous lesion. The soft tissues are normal. IMPRESSION: Right infrahilar and left perihilar airspace opacities are suggestive of edema, atelectasis or pneumonia. Mild cardiomegaly. Signed by: Dr. Andrews Chapman MD on 11/23/2019 6:05 AM
[2019-11-23] MEDS: FAMOTIDINE 20 MG TAB PO SCH ×2 (07:30→17:44)
[2019-11-23] MEDS: SENNOSIDES 8.6 MG TAB PO SCH ×2 (07:30→16:30)
--- NOTE | 2019-11-23 08:21 | NUR ---
IM- progress note O/N see below ROS: no f/c/s/SOB/cp/leg pain/no back pain/confusion/focal limb weakness. v/s; revd PE: tired appearing anicteirc ns1s2 mod bs soft nd; mild tenderness lower abdomen no e/t skin dry flat affect a&ox3; allred labs/meds revd A/P: 64yoM Constipation TOBI Dehydration ESBL E.coli UTI Hyponatremia Metabolic acidosis PLAN IVF; bicarbs; Bowel regimen; IV abx; f/u cx; Check labs in am. SCD/pepcid 11-20 treat hyponatremia and dehydration and metabolic acidosis; 11-21 ESBL E.coli UTI- merrem; IJ needed. 11/22 check labs in am. 11/23 TOBI improving; control BP; SNF eval. ID eval; Hyponatremia- resolving; check labs; give 20 lasix once; hold fluids. Christos Pulido MD, PhD.
--- NOTE | 2019-11-23 08:52 | NUR ---
Dr Puliod here for rounds, he aware about Chest X-ray result, new orders recvd for IV Lasix X1 , hold IV fluids for today, repeat BMP tomorrow.
[2019-11-23] MEDS: NIFEDIPINE CR 30 MG TAB PO SCH (08:58)
[2019-11-23] MEDS: SODIUM CHLORIDE 1 GM TAB PO SCH ×3 (08:58→21:40)
[2019-11-23] MEDS: DOCUSATE SODIUM 100 MG CAP PO SCH ×2 (08:58→17:00)
[2019-11-23] MEDS: SODIUM BICARBONATE 650 MG TAB PO SCH ×2 (08:58→17:45)
[2019-11-23] MEDS: MEROPENEM 500MG/ NS 50ML 50 ML IV SCH ×2 (08:58→21:40)
[2019-11-23] MEDS: LABETALOL HCL 100 MG TAB PO SCH ×2 (08:58→21:40)
[2019-11-23] MEDS: MULTIVITAMINS/MINERALS TAB PO SCH (08:58)
[2019-11-23 09:21] LABS: BASOPHILS # (AUTO) 0.1 (0.0-0.1); BASOPHILS % 0.5 % (0.0-1.0); EOSINOPHILS # (AUTO) 0.2 (0.0-0.4); EOSINOPHILS % 1.1 % (0.0-6.0); HEMATOCRIT 38.6 % (38.2-49.6); HEMOGLOBIN 13.3 g/dL (14.0-18.0); LYMPHOCYTES # (AUTO) 0.9 (1.0-3.2); LYMPHOCYTES % 5.1 % (18.0-39.1); MEAN CORPUSCULAR HEMOGLOBIN 32.8 pg (28-32); MEAN CORPUSCULAR HGB CONC 34.5 g/dL (31-35); MEAN CORPUSCULAR VOLUME 95.3 fL (81-99); MONOCYTES # (AUTO) 1.2 (0.2-0.8); NEUTROPHILS # (AUTO) 14.3 (2.1-6.9); NEUTROPHILS % 84.1 % (38.7-80.0); PLATELET COUNT 303 x10e3/uL (140-360); RED BLOOD COUNT 4.05 x10e6/uL (4.3-5.7); RED CELL DISTRIBUTION WIDTH 12.4 % (11.7-14.4)
[2019-11-23 09:42] LABS: ANION GAP 14.1 mmol/L (8-16); CALCIUM 7.7 mg/dL (8.4-10.2); CREATININE, SERUM 1.61 mg/dL (0.72-1.25); POTASSIUM 4.1 mmol/L (3.5-5.1)
[2019-11-23] MEDS ORDERED: FUROSEMIDE INJ 10 MG/ML 2 ML VIAL IV ONE (10:00)
[2019-11-23 10:01] LABS: MAGNESIUM 1.6 MG/DL (1.3-2.1); PHOSPHORUS 2.6 MG/DL (2.3-4.7)
--- NOTE | 2019-11-23 11:35 | NUR ---
SNF ORDER RECEIVED. PATIENT SIGNED CHOICE FOR [facility]. AWAITING INSURANCE AUTH. PATIENT CONTINUES ON IV ABX FOR ESBL
[2019-11-23 16:21] LABS: BAND NEUTROPHILS % (MANUAL) 1 %; LYMPHOCYTES % (MANUAL) 3 % (19-48); MONOCYTES % (MANUAL) 12 % (3.4-9.0); NEUTROPHILS % (MANUAL) 83 % (40-74); PLATELET ESTIMATE ADEQUATE; PLATELET MORPHOLOGY COMMENT NORMAL; RBC MORPHOLOGY COMMENT NORMAL
--- NOTE | 2019-11-23 19:44 | Consultation ---
DATE OF CONSULTATION: 11/23/2019 Infectious Disease Initial Consultation CONSULTING PHYSICIANS: 1. Tony Pulido MD. 2. Marilyn Aguilar MD. REASON FOR CONSULTATION: Management of IV antibiotics for E. coli ESBL urinary tract infection as well as leukocytosis. HISTORY OF PRESENT ILLNESS: This is a 64-year-old male with past medical history of hypertension and chronic tobacco abuse who presented to [facility] emergency department with complaints of constipation and lower abdominal pain. On 11/19/2019, he did have some complaints of additional nausea without any vomiting. He came to the emergency department for evaluation. CT of the abdomen and pelvis was done which was negative for any acute abdominal issues. Urine culture was positive for E coli ESBL. The patient was started on meropenem on 11/21/2019. Admission white count was elevated and has been trending down since initiation of meropenem. Also, the patient does have complaints today of some shortness of breath. He has decreased breath sounds in bilateral bases. Again, he is a chronic tobacco smoker about a quarter pack per day. Chest x-ray was done today that showed some bilateral perihilar opacities suggestive of edema, atelectasis, and possible pneumonia. The patient's O2 saturations have been okay, but oxygen had to be increased to 5 L per nasal cannula this morning. He has been afebrile. Creatinine was 1.61 today. PAST MEDICAL HISTORY: See HPI. PAST SURGICAL HISTORY: None. ALLERGIES: NO KNOWN DRUG ALLERGIES. FAMILY HISTORY: Unremarkable. SOCIAL HISTORY: He is . Positive tobacco abuse. One-fourth to one-half pack per day of cigarettes. No illicit drug use. No ETOH abuse. MEDICATIONS: See MAR. REVIEW OF SYSTEMS: A 14-point review of systems was conducted. Positive for some lower back pain and mild shortness of breath. Otherwise, he denies any dysuria, nausea, vomiting, diarrhea, or constipation at this time. PHYSICAL EXAMINATION: VITAL SIGNS: Currently, temperature 97.3, blood pressure 167/83, pulse 98, respirations 30, O2 saturation on 4 L per nasal cannula is 91. GENERAL: He is awake, alert, and oriented x3, does not appear to be in any acute distress. LUNGS: With diminished sounds at bases. Some rhonchi heard in right upper lobe. HEENT: Head is normocephalic and atraumatic. PERRLA. Extraocular movements are intact. NECK: Supple. No lymphadenopathy. CARDIOVASCULAR: Regular rate and rhythm. Normal S1, S2. No murmurs audible. ABDOMEN: Soft, nontender, nondistended. Bowel sounds present x4. EXTREMITIES: There is no cyanosis, clubbing, or edema. NEUROLOGICAL: Nonfocal. Cranial nerves 2 through 12 grossly intact. LABORATORY AND DIAGNOSTIC DATA: White count today is 16.9, hemoglobin 13.3, hematocrit 38.6, platelet count of 303. Sodium 136, potassium 4.1, chloride 108, bicarb 18, BUN of 20, creatinine of 1.61, INR is 1.36. Liver enzymes within normal limits. ASSESSMENT: 1. E. coli ESBL urinary tract infection. 2. Leukocytosis. 3. Acute kidney injury. 4. Back pain. PLAN AND RECOMMENDATIONS: We will continue with meropenem. Further recommendations to follow based on the patient's clinical course. Case was discussed with Dr. Aguilar as well as Dr. Pulido. Thank you Dr. Pulido for the consultation. We will continue to follow the patient along with you. Dictated by Jeovany Sanchez NP MD RIANA Mcknight/VICKIE /[id number]
[2019-11-24] VITALS (8 sets, daily range): BP systolic 134–158; BP diastolic 68–88
[2019-11-24] MEDS: GUAIFENESIN/DEXTROMETHORPHAN LIQD 5 ML UDC PO SCH ×3 (05:33→22:00)
[2019-11-24 05:52] LABS: ANION GAP 14.8 mmol/L (8-16); CALCIUM 8.1 mg/dL (8.4-10.2); CREATININE, SERUM 1.55 mg/dL (0.72-1.25); POTASSIUM 3.8 mmol/L (3.5-5.1)
--- NOTE | 2019-11-24 06:45 | NUR ---
IM- progress note O/N see below ROS: no f/c/s/SOB/cp/leg pain/no back pain/confusion/focal limb weakness. v/s; revd PE: tired appearing anicteirc ns1s2 mod bs soft nd; mild tenderness lower abdomen no e/t skin dry flat affect a&ox3; allred labs/meds revd A/P: 64yoM Constipation TOBI Dehydration ESBL E.coli UTI Hyponatremia Metabolic acidosis PLAN IVF; bicarbs; Bowel regimen; IV abx; f/u cx; Check labs in am. SCD/pepcid 11-20 treat hyponatremia and dehydration and metabolic acidosis; 11-21 ESBL E.coli UTI- merrem; IJ needed. 11/22 check labs in am. 2 TOBI improving; control BP; SNF eval. ID eval; Hyponatremia- resolving; check labs; give 20 lasix once; hold fluids. 2/3 check labs; renal U/S; titrate BB up for BP control Christos Pulido MD, PhD.
--- NOTE | 2019-11-24 07:10 | NUR ---
PATIENT IS ALERT AND IN STABLE CONDITION WITH NO S/S OF RESPIRATORY DISTRESS. PATIENT DENIES PAIN. 02 APPLIED AT 3L NC. CALL LIGHT IS WITHIN REACH, PATIENT INSTRUCTED TO CALL FOR ASSISTANCE NEEDED.
[2019-11-24] MEDS: SENNOSIDES 8.6 MG TAB PO SCH ×2 (07:30→16:23)
[2019-11-24] MEDS: DOCUSATE SODIUM 100 MG CAP PO SCH ×2 (09:00→16:23)
[2019-11-24] MEDS: FAMOTIDINE 20 MG TAB PO SCH ×2 (09:07→16:23)
[2019-11-24] MEDS: SODIUM CHLORIDE 1 GM TAB PO SCH ×3 (09:07→20:34)
[2019-11-24] MEDS: MULTIVITAMINS/MINERALS TAB PO SCH (09:07)
[2019-11-24] MEDS: SODIUM BICARBONATE 650 MG TAB PO SCH ×2 (09:07→16:23)
[2019-11-24] MEDS: MEROPENEM 500MG/ NS 50ML 50 ML IV SCH ×2 (09:07→20:34)
[2019-11-24] MEDS: LABETALOL HCL 100 MG TAB PO SCH ×2 (09:08→20:34)
[2019-11-24] MEDS: NIFEDIPINE CR 30 MG TAB PO SCH (09:08)
--- NOTE | 2019-11-24 12:01 | Diagnostic Imaging Report ---
EXAM: Renal Ultrasound INDICATION: ^mau vs ckd COMPARISON: None TECHNIQUE: Transverse and longitudinal images of the kidneys and bladder were obtained. FINDINGS: Right Kidney: Length: 11.2 cm Appearance: Normal echogenicity. Collecting system: No hydronephrosis Stones: None Cyst/Mass: Lower pole exophytic 2.5 x 2.9 x 2.6 cm anechoic simple cyst. Left Kidney: Length: 10.8 cm Appearance: Normal echogenicity. Collecting system: No hydronephrosis Stones: None Cyst/Mass: None Bladder: No mass or calculi. Prevoid volume estimate of 71 cc. Bilateral ureteral jets visualized. The prostate is partially obscured by bowel gas and measures 2.2 x 1.8 x 2.2 cm with volume estimate of 5 cc. IMPRESSION: No hydronephrosis or renal calculi. Right lower pole simple cyst. Signed by: Cole Hernandez MD on 11/24/2019 11:59 AM
[2019-11-24] MEDS ORDERED: VANCOMYCIN 1GM/NS 250 ML 250 ML IV NR (13:45)
--- NOTE | 2019-11-24 14:44 | Diagnostic Imaging Report ---
EXAMINATION: CHEST SINGLE (PORTABLE) INDICATION: Cough COMPARISON: Chest radiograph 11/23/2019 FINDINGS: LINES/TUBES:Right IJ tunneled central venous catheter terminates near the superior cavoatrial junction. LUNGS:The lungs are moderately inflated. Left lung base consolidation partially silhouetting the left heart border and left hemidiaphragm. PLEURA:Possible small left pleural effusion. No pneumothorax. MEDIASTINUM:The cardiomediastinal silhouette appears unchanged in size and shape. Atherosclerotic calcifications of the thoracic aorta. BONES/SOFT TISSUES:No acute osseous injury. ABDOMEN:No free air under the diaphragm. IMPRESSION: Left lung base consolidation, concerning for aspiration and/or pneumonia. RECOMMENDATIONS: Lower PA and lateral chest radiograph in 6-8 weeks following treatment to assess for resolution. Signed by: Cole Hernandez MD on 11/24/2019 2:41 PM
--- NOTE | 2019-11-24 19:07 | NUR ---
PATIENT IS IN STABLE CONDITION WITH NO S/S OF RESPIRATORY DISTRESS. NO PAIN VOICED. 02 APPLIED AT 3L NC. CALL LIGHT IS WITHIN REACH, PATIENT INSTRUCTED TO CALL FOR ASSISTANCE NEEDED. BEDSIDE SHIFT REPORT GIVEN TO ONCOMING NURSE.
--- NOTE | 2019-11-24 19:10 | NUR ---
patient received awake, alert, sitting up on side of bed. no c/o pain noted. respirations even and unlabored. 3l/nc in use. pm assessment complete. patient instructed to call for assistance when needed.
[2019-11-25] VITALS (7 sets, daily range): BP systolic 138–182; BP diastolic 76–87
[2019-11-25] MEDS: GUAIFENESIN/DEXTROMETHORPHAN LIQD 5 ML UDC PO SCH ×3 (05:22→21:18)
--- NOTE | 2019-11-25 06:38 | NUR ---
IM- progress note O/N see below ROS: no f/c/s/SOB/cp/leg pain/no back pain/confusion/focal limb weakness. v/s; revd PE: tired appearing anicteirc ns1s2 mod bs soft nd; mild tenderness lower abdomen no e/t skin dry flat affect a&ox3; allred labs/meds revd A/P: 64yoM Constipation TOBI Dehydration ESBL E.coli UTI Hyponatremia Metabolic acidosis PLAN IVF; bicarbs; Bowel regimen; IV abx; f/u cx; Check labs in am. SCD/pepcid 11-20 treat hyponatremia and dehydration and metabolic acidosis; 11-21 ESBL E.coli UTI- merrem; IJ needed. 11/22 check labs in am. 11/23 TOBI improving; control BP; SNF eval. ID eval; Hyponatremia- resolving; check labs; give 20 lasix once; hold fluids. 2/3 check labs; renal U/S; titrate BB up for BP control 11/25 Left PNA- likely POA, as infiltrates present on prior CXR; cont abx per ID. SNF pending; Christos Pulido MD, PhD.
[2019-11-25] MEDS: SENNOSIDES 8.6 MG TAB PO SCH ×2 (07:30→16:30)
[2019-11-25 07:41] LABS: HEMOGLOBIN 13.3 g/dL (14.0-18.0); MEAN CORPUSCULAR HEMOGLOBIN 33.3 pg (28-32); MEAN CORPUSCULAR HGB CONC 35.9 g/dL (31-35); MEAN CORPUSCULAR VOLUME 92.7 fL (81-99); RED BLOOD COUNT 3.99 x10e6/uL (4.3-5.7); RED CELL DISTRIBUTION WIDTH 12.6 % (11.7-14.4)
[2019-11-25 07:42] LABS: PLATELET COUNT 278 x10e3/uL (140-360)
[2019-11-25 07:49] LABS: ANION GAP 13.6 mmol/L (8-16); CALCIUM 7.9 mg/dL (8.4-10.2); CREATININE, SERUM 1.53 mg/dL (0.72-1.25); POTASSIUM 3.6 mmol/L (3.5-5.1)
--- NOTE | 2019-11-25 08:00 | NUR ---
PATIENT IS SLEEPING BUT EASILY AWAKES WITH SOUND. PATIENT IN STABLE CONDITION WITH NO S/S OF RESPIRATORY DISTRESS. NO PAIN VOICED. 02 APPLIED AT 4L NC. CALL LIGHT IS WITHIN REACH, PATIENT INSTRUCTED TO CALL FOR ASSISTANCE NEEDED.
[2019-11-25] MEDS: DOCUSATE SODIUM 100 MG CAP PO SCH ×2 (08:23→17:00)
[2019-11-25] MEDS: SODIUM CHLORIDE 1 GM TAB PO SCH ×3 (08:28→20:40)
[2019-11-25] MEDS: SODIUM BICARBONATE 650 MG TAB PO SCH ×2 (08:28→17:34)
[2019-11-25] MEDS: MULTIVITAMINS/MINERALS TAB PO SCH (08:31)
[2019-11-25] MEDS: FAMOTIDINE 20 MG TAB PO SCH ×2 (08:31→17:34)
[2019-11-25] MEDS: MEROPENEM 500MG/ NS 50ML 50 ML IV SCH ×2 (08:31→20:40)
[2019-11-25] MEDS: LABETALOL HCL 100 MG TAB PO SCH ×2 (08:33→20:40)
[2019-11-25] MEDS: NIFEDIPINE CR 30 MG TAB PO SCH (08:33)
--- NOTE | 2019-11-25 08:42 | NUR ---
DR. BORGES INFORMED OF PATIENT'S SEPSIS SCREEN INDICATING SIRS ALERT THIS MORNING- NO NEW ORDERS RECEIVED.
--- NOTE | 2019-11-25 08:49 | NUR ---
MESSAGED FACILITY REP TO SEE ABOUT STATUS, STILL PENDING
[2019-11-25] MEDS ORDERED: FUROSEMIDE INJ 10 MG/ML 2 ML VIAL IV ONE (09:00)
--- NOTE | 2019-11-25 19:10 | NUR ---
PATIENT RESTING BACK IN THE BED- IN STABLE CONDITION WITH NO S/S OF RESPIRATORY DISTRESS. NO PAIN VOICED. CALL LIGHT IS WITHIN REACH- PATIENT INSTRUCTED TO CALL FOR ASSISTANCE NEEDED. BEDSIDE SHIFT REPORT GIVEN TO ONCOMING NURSE.
--- NOTE | 2019-11-25 19:15 | NUR ---
patient received awake, alert, lying quietly in bed. no c/o pain noted. pm assessment complete. patient instructed to call for assistance when needed.
[2019-11-26] VITALS: BP 133/67
[2019-11-26 04:00] VITALS: BP 173/82
[2019-11-26] MEDS: GUAIFENESIN/DEXTROMETHORPHAN LIQD 5 ML UDC PO SCH (05:35)
--- NOTE | 2019-11-26 06:48 | NUR ---
D/C SUmmary' Principal Dx: Constipation TOBI Dehydration ESBL E.coli UTI Hyponatremia Metabolic acidosis Secondary Dx: PLAN IVF; bicarbs; Bowel regimen; IV abx; f/u cx; Check labs in am. SCD/pepcid 11-20 treat hyponatremia and dehydration and metabolic acidosis; 11-21 ESBL E.coli UTI- merrem; IJ needed. 11/22 check labs in am. 11/23 TOBI improving; control BP; SNF eval. ID eval; Hyponatremia- resolving; check labs; give 20 lasix once; hold fluids. 11/24 check labs; renal U/S; titrate BB up for BP control 11/25 Left PNA- likely POA, as infiltrates present on prior CXR; cont abx per ID. SNF pending; 11/26 check labs; d/c to SNF stable f/u pcp 1 week d/c>35mins Christos Pulido MD, PhD.
[2019-11-26 07:02] LABS: BASOPHILS # (AUTO) 0.1 (0.0-0.1); BASOPHILS % 0.7 % (0.0-1.0); EOSINOPHILS # (AUTO) 0.3 (0.0-0.4); EOSINOPHILS % 2.8 % (0.0-6.0); HEMATOCRIT 36.3 % (38.2-49.6); HEMOGLOBIN 12.8 g/dL (14.0-18.0); LYMPHOCYTES # (AUTO) 1.2 (1.0-3.2); LYMPHOCYTES % 10.5 % (18.0-39.1); MEAN CORPUSCULAR HEMOGLOBIN 32.8 pg (28-32); MEAN CORPUSCULAR HGB CONC 35.3 g/dL (31-35); MEAN CORPUSCULAR VOLUME 93.1 fL (81-99); MONOCYTES # (AUTO) 0.9 (0.2-0.8); MONOCYTES % 7.4 % (4.4-11.3); NEUTROPHILS % 77.7 % (38.7-80.0); PLATELET COUNT 266 x10e3/uL (140-360); RED CELL DISTRIBUTION WIDTH 12.6 % (11.7-14.4)
[2019-11-26 07:19] LABS: ANION GAP 13.3 mmol/L (8-16); CALCIUM 7.7 mg/dL (8.4-10.2); CREATININE, SERUM 1.76 mg/dL (0.72-1.25); POTASSIUM 3.3 mmol/L (3.5-5.1)
[2019-11-26 07:38] VITALS: BP 162/75
[2019-11-26 07:46] VITALS: BP 162/75
--- NOTE | 2019-11-26 08:25 | NUR ---
FAXED PT NOTE TO FACILITY PER REQUEST PENDING AUTH
[2019-11-26] MEDS: FAMOTIDINE 20 MG TAB PO SCH (08:40)
[2019-11-26] MEDS: SENNOSIDES 8.6 MG TAB PO SCH (08:41)
[2019-11-26] MEDS: MEROPENEM 500MG/ NS 50ML 50 ML IV SCH (08:41)
[2019-11-26] MEDS: MULTIVITAMINS/MINERALS TAB PO SCH (08:41)
[2019-11-26] MEDS: SODIUM BICARBONATE 650 MG TAB PO SCH (08:41)
[2019-11-26] MEDS: DOCUSATE SODIUM 100 MG CAP PO SCH (08:41)
[2019-11-26] MEDS: SODIUM CHLORIDE 1 GM TAB PO SCH (08:41)
[2019-11-26] MEDS: NIFEDIPINE CR 30 MG TAB PO SCH (08:42)
[2019-11-26] MEDS: LABETALOL HCL 100 MG TAB PO SCH (08:43)
--- NOTE | 2019-11-26 11:15 | NUR ---
SHELTER FACILITY DISCHARGE INFORMATION PATIENT HAS BEEN ACCEPTED TO: [facility] NAME:[facility] ADDRESS:[id number] [place] ACCEPTING MD: JONY ROOM: 107 NURSE CALL REPORT TO: [phone] IMM SIGNED AND OBTAINED (if applicable): YES THE FOLLOWING DOCUMENTS MUST ACCOMPANY PATIENT FOR TRANSFER: COPIED CHART: PACKET
[2019-11-26 11:34] VITALS: BP 167/91
--- NOTE | 2019-11-26 11:42 | NUR ---
called report to [facility] to nurse lopez LVN. calling ambulance and awaiting transportation.
== END 2019-11-26 13:47 | DRG 871 ==
LOC: ER 10:09 → ERHOLD 14:01 → INTOOBSV 14:01 → MED/SURG3 18:39 → OBSVTOIN 11-21 09:55
PROVIDERS: ADMIT Internal Medicine; ATTEND Internal Medicine
PROC: 0JH63XZ Insertion of Tunneled Vascular Access Device into Chest Subcutaneous Tissue and Fascia, Percutaneous Approach (ICD-10-PCS; principal; 2019-11-21)
PROC: 02HV33Z Insertion of Infusion Device into Superior Vena Cava, Percutaneous Approach (ICD-10-PCS; 2019-11-21)
DX: A41.9 Sepsis, unspecified organism (principal); J18.1 Lobar pneumonia, unspecified organism; N17.9 Acute kidney failure, unspecified; N39.0 Urinary tract infection, site not specified; E87.1 Hypo-osmolality and hyponatremia; E87.2 Acidosis; Z16.12 Extended spectrum beta lactamase (ESBL) resistance; K59.00 Constipation, unspecified; E86.0 Dehydration; B96.20 Unspecified Escherichia coli [E. coli] as the cause of diseases classified elsewhere
CPT/HCPCS: 36415; 36558; 71045; 74176; 74470; 76770; 76937; 77001; 80048; 80053; 81001; 82550; 82553; 82948; 83036; 83735; 84100; 84484; 85007; 85025; 85027; 85610; 85730; 87070; 87086; 87186; 87205; 99152; 99284; C1769; G0378; J0500; J0696; J1940; J2001; J2250; J2405; J3010; J3370; J7030; J7050

== ENCOUNTER 2019-12-09 12:47 | Emergency (ER) | payer MEDICARE ==
[~2019-12-09] VITALS: Ht 160 cm; Wt 70.3 kg
[2019-12-09 14:29] VITALS: BP 144/76
--- NOTE | 2019-12-09 15:25 | Diagnostic Imaging Report ---
PROCEDURE: Tunneled central venous catheter removal Procedural Personnel Attending physician(s): Cole Hernandez MD Fellow physician(s): None Resident physician(s): None Advanced practice provider(s): None Pre-procedure diagnosis: Urinary tract infection Post-procedure diagnosis: Same Indication: Catheter no longer needed Additional clinical history: None Complications: No immediate complications. IMPRESSION: Removal of right-sided tunneled central venous catheter. Plan: Please re-consult interventional radiology if new catheter placement is desired. PROCEDURE SUMMARY: - Tunneled central venous catheter removal - Additional procedure(s): None PROCEDURE DETAILS: Pre-procedure Consent: Informed consent for the procedure including risks, benefits and alternatives was obtained and time-out was performed prior to the procedure. Preparation: The site was prepared and draped using maximal sterile barrier technique including cutaneous antisepsis. Anesthesia/sedation Level of anesthesia/sedation: No sedation Anesthesia/sedation administered by: Not applicable Total intra-service sedation time (minutes): N/A Catheter removal Local anesthesia was administered. The catheter was removed with traction. Closure Hemostasis was achieved with manual compression. Sterile dressing(s) applied. Contrast Contrast agent: None Contrast volume (mL): N/A Additional Details Additional description of procedure: None Equipment details: None Specimens removed: Tunneled central venous catheter. Estimated blood loss (mL): Less than 10 Standardized report: [email or web address] Attestation Signer name: Cole Hernandez MD I attest that I was present for the entire procedure. I reviewed the stored images and agree with the report as written. Signed by: Cole Hernandez MD on 12/09/2019 3:22 PM
== END 2019-12-09 14:40 | disposition home or self-care (01) ==
LOC: ER 12:47
DX: Z45.2 Encounter for adjustment and management of vascular access device (principal)
CPT/HCPCS: 36589; 74470; 99281

== ENCOUNTER 2022-08-01 08:18 | Inpatient (IN) | payer MEDICARE ==
[~2022-08-01] VITALS: Ht 165.1 cm; Wt 63.5 kg
[2022-08-01] VITALS (13 sets, daily range): BP systolic 128–164; BP diastolic 72–119
[2022-08-01] MEDS ORDERED: HYDRALAZINE HCL 20 MG/ML VIAL ONE (08:49)
[2022-08-01] MEDS ORDERED: ONDANSETRON HCL INJ 2MG/ML 2ML 2 MG/ML VIAL ONE (08:49)
[2022-08-01] MEDS ORDERED: METHYLPREDNISOLONE SOD SUCC 125 MG/2ML VIAL ONE (08:49)
[2022-08-01] MEDS ORDERED: SODIUM CHLORIDE 0.9% 1000ML 1,000 ML ONE (08:50)
[2022-08-01] MEDS ORDERED: ONDANSETRON HCL INJ 2MG/ML 2ML 2 MG/ML VIAL IV STA (08:58)
[2022-08-01] MEDS ORDERED: HYDRALAZINE HCL 20 MG/ML VIAL IV ONE (09:00)
[2022-08-01] MEDS ORDERED: ACETAMINOPHEN 325 MG TAB PO ONE (09:00)
[2022-08-01] MEDS ORDERED: METHYLPREDNISOLONE SOD SUCC 125 MG/2ML VIAL IV ONE (09:00)
[2022-08-01] MEDS ORDERED: SODIUM CHLORIDE 0.9% 1000ML 1,000 ML IV SCH (09:00)
[2022-08-01] MEDS ORDERED: ALBUTEROL/IPRATROPIUM 3 ML NEB NEB ONE (09:00)
[2022-08-01] MEDS ORDERED: CEFTRIAXONE 1 GM VIAL ONE (09:07)
[2022-08-01] MEDS ORDERED: SODIUM CHLORIDE 0.9% 250ML 250 ML ONE (09:07)
[2022-08-01] MEDS ORDERED: ACETAMINOPHEN 325 MG TAB ONE (09:08)
[2022-08-01] MEDS ORDERED: ASPIRIN 325 MG TAB PO ONE (09:15)
[2022-08-01] MEDS ORDERED: ASPIRIN 81 MG CHEW TAB ONE (09:32)
[2022-08-01] MEDS ORDERED: NITROGLYCERIN 2% OINT 1 GM PKT ONE (09:37)
[2022-08-01] MEDS ORDERED: FUROSEMIDE INJ 10 MG/ML 2 ML VIAL IV ONE (09:45)
[2022-08-01] MEDS ORDERED: CLOPIDOGREL BISULFATE 75 MG TAB ONE (09:45)
[2022-08-01] MEDS ORDERED: CLOPIDOGREL BISULFATE 75 MG TAB PO ONE (09:45)
[2022-08-01] MEDS ORDERED: METOPROLOL TARTRATE INJ 1 MG/ML VIAL ONE (09:45)
[2022-08-01] MEDS ORDERED: METOPROLOL TARTRATE INJ 1 MG/ML VIAL IV ONE ×2 (09:45)
[2022-08-01] MEDS ORDERED: FUROSEMIDE INJ 10 MG/ML 4 ML VIAL ONE (09:56)
[2022-08-01] MEDS: ENOXAPARIN INJ 80 MG/0.8 ML SYR SC SCH (09:57)
[2022-08-01] MEDS ORDERED: NITROGLYCERIN 2% OINT 1 GM PKT TOP ONE (10:00)
[2022-08-01] MEDS ORDERED: ENOXAPARIN SODIUM INJ 100 MG/ML SYR SC ONE (10:10)
[2022-08-01] MEDS ORDERED: NITROGLYCERIN 0.4 MG SUBL SL PRN (10:15)
[2022-08-01] MEDS ORDERED: SODIUM CHLORIDE FLUSH 10 ML SYR INJ PRN (10:15)
[2022-08-01] MEDS ORDERED: ONDANSETRON HCL INJ 2MG/ML 2ML 2 MG/ML VIAL IV PRN ×2 (10:15→12:30)
[2022-08-01] MEDS: OSELTAMIVIR PHOSPHATE 75 MG CAP PO SCH (12:14)
[2022-08-01] MEDS ORDERED: ACETAMINOPHEN 325 MG TAB PO PRN ×2 (12:30→13:00)
[2022-08-01] MEDS ORDERED: ZOLPIDEM TARTRATE 5 MG TAB PO PRN (12:30)
[2022-08-01] MEDS ORDERED: DIPHENHYDRAMINE HCL 25 MG CAP PO PRN (13:00)
[2022-08-01] MEDS ORDERED: DEXTROSE 50% SYRINGE 50 ML IV PRN (13:00)
[2022-08-01] MEDS ORDERED: DOCUSATE SODIUM 100 MG CAP PO PRN (13:00)
[2022-08-01] MEDS ORDERED: LIDOCAINE 4% PATCH TP PRN (13:00)
[2022-08-01] MEDS ORDERED: POTASSIUM CHLORIDE 20 MEQ TAB CR PO PRN (13:00)
[2022-08-01] MEDS ORDERED: SIMETHICONE 80 MG CHEW PO PRN (13:00)
[2022-08-01 14:39] LABS: BASOPHILS % 0.5 % (0.0-1.0); HEMATOCRIT 46.2 % (38.2-49.6); HEMOGLOBIN 15.5 g/dL (14.0-18.0); LYMPHOCYTES # (AUTO) 0.1 (1.0-3.2); LYMPHOCYTES % 1.7 % (18.0-39.1); MEAN CORPUSCULAR HEMOGLOBIN 33.6 pg (28-32); MEAN CORPUSCULAR HGB CONC 33.5 g/dL (31-35); MEAN CORPUSCULAR VOLUME 100.2 fL (81-99); MONOCYTES # (AUTO) 0.2 (0.2-0.8); MONOCYTES % 2.6 % (4.4-11.3); NEUTROPHILS # (AUTO) 7.3 (2.1-6.9); NEUTROPHILS % 94.7 % (38.7-80.0); PLATELET COUNT 173 x10e3/uL (140-360); RED BLOOD COUNT 4.61 x10e6/uL (4.3-5.7); RED CELL DISTRIBUTION WIDTH 12.3 % (11.7-14.4)
[2022-08-01 14:59] LABS: ALBUMIN 3.3 g/dL (3.5-5.0); ALBUMIN/GLOBULIN RATIO 0.8 (0.8-2.0); ANION GAP 16.3 mmol/L (8-16); CALCIUM 8.4 mg/dL (8.4-10.2); CREATININE, SERUM 2.11 mg/dL (0.72-1.25); POTASSIUM 4.3 mmol/L (3.5-5.1)
[2022-08-01 15:15] LABS: CREATINE KINASE MB 17.2 ng/mL (0-5.0)
[2022-08-01] MEDS: ALBUTEROL/IPRATROPIUM 3 ML NEB NEB PRN (20:10)
[2022-08-01] MEDS: ATORVASTATIN 40 MG TAB PO SCH (20:58)
[2022-08-01] MEDS: METOPROLOL SUCCINATE 25 MG TAB XL PO SCH (20:58)
[2022-08-01 22:43] LABS: CREATINE KINASE MB 18.5 ng/mL (0-5.0)
[2022-08-02] VITALS (26 sets, daily range): BP systolic 118–172; BP diastolic 78–128
[2022-08-02] MEDS: BENZONATATE 100 MG CAP PO PRN ×2 (00:52→17:40)
[2022-08-02 06:22] LABS: BASOPHILS % 0.2 % (0.0-1.0); HEMATOCRIT 50.1 % (38.2-49.6); HEMOGLOBIN 16.7 g/dL (14.0-18.0); LYMPHOCYTES # (AUTO) 0.3 (1.0-3.2); LYMPHOCYTES % 3.2 % (18.0-39.1); MEAN CORPUSCULAR HEMOGLOBIN 33.6 pg (28-32); MEAN CORPUSCULAR HGB CONC 33.3 g/dL (31-35); MEAN CORPUSCULAR VOLUME 100.8 fL (81-99); MONOCYTES % 9.2 % (4.4-11.3); NEUTROPHILS # (AUTO) 9.2 (2.1-6.9); NEUTROPHILS % 87.1 % (38.7-80.0); PLATELET COUNT 211 x10e3/uL (140-360); RED BLOOD COUNT 4.97 x10e6/uL (4.3-5.7); RED CELL DISTRIBUTION WIDTH 12.2 % (11.7-14.4)
[2022-08-02 06:41] LABS: ANION GAP 17.5 mmol/L (8-16); CALCIUM 9.2 mg/dL (8.4-10.2); CHOL/HDL RATIO 2.6 (3.9-4.7); CREATININE, SERUM 2.28 mg/dL (0.72-1.25); MAGNESIUM 2.2 MG/DL (1.3-2.1); PHOSPHORUS 4.2 MG/DL (2.3-4.7); POTASSIUM 4.5 mmol/L (3.5-5.1)
[2022-08-02 07:09] LABS: CREATINE KINASE MB 18.8 ng/mL (0-5.0)
[2022-08-02] MEDS: ALBUTEROL/IPRATROPIUM 3 ML NEB NEB PRN ×2 (07:25→19:55)
[2022-08-02] MEDS: PANTOPRAZOLE SOD 40 MG TABEC PO SCH (08:03)
[2022-08-02] MEDS: ENOXAPARIN INJ 80 MG/0.8 ML SYR SC SCH (08:57)
[2022-08-02] MEDS: METOPROLOL SUCCINATE 25 MG TAB XL PO SCH (08:57)
[2022-08-02] MEDS: CLOPIDOGREL BISULFATE 75 MG TAB PO SCH (08:57)
[2022-08-02] MEDS: ASPIRIN 81 MG CHEW TAB PO SCH (08:58)
[2022-08-02] MEDS: OSELTAMIVIR PHOSPHATE 75 MG CAP PO SCH ×2 (08:58→16:50)
[2022-08-02] MEDS ORDERED: ASPIRIN 81 MG ENTERIC COATED PO SCH (09:00)
[2022-08-02] MEDS ORDERED: HEPARIN 25,000 UNIT 800 UNIT in DEXTROSE 5% 250ML 250 ML IV SCH (11:45)
[2022-08-02] MEDS: ATORVASTATIN 40 MG TAB PO SCH (21:26)
[2022-08-02] MEDS: METOPROLOL SUCCINATE 50 MG TAB XL PO SCH (21:26)
[2022-08-03] VITALS (23 sets, daily range): BP systolic 114–167; BP diastolic 73–106
[2022-08-03] MEDS: BENZONATATE 100 MG CAP PO PRN (01:27)
[2022-08-03 06:28] LABS: BASOPHILS % 0.4 % (0.0-1.0); EOSINOPHILS % 0.4 % (0.0-6.0); HEMATOCRIT 44.5 % (38.2-49.6); HEMOGLOBIN 14.7 g/dL (14.0-18.0); LYMPHOCYTES # (AUTO) 0.7 (1.0-3.2); LYMPHOCYTES % 9.2 % (18.0-39.1); MEAN CORPUSCULAR HEMOGLOBIN 33.6 pg (28-32); MEAN CORPUSCULAR VOLUME 101.6 fL (81-99); MONOCYTES # (AUTO) 0.7 (0.2-0.8); MONOCYTES % 9.7 % (4.4-11.3); NEUTROPHILS # (AUTO) 5.7 (2.1-6.9); NEUTROPHILS % 80.2 % (38.7-80.0); PLATELET COUNT 178 x10e3/uL (140-360); RED BLOOD COUNT 4.38 x10e6/uL (4.3-5.7); RED CELL DISTRIBUTION WIDTH 12.3 % (11.7-14.4)
[2022-08-03 07:01] LABS: ALBUMIN 2.8 g/dL (3.5-5.0); ALBUMIN/GLOBULIN RATIO 0.8 (0.8-2.0); ANION GAP 15.3 mmol/L (8-16); CALCIUM 8.1 mg/dL (8.4-10.2); CREATININE, SERUM 1.97 mg/dL (0.72-1.25); POTASSIUM 4.3 mmol/L (3.5-5.1)
[2022-08-03] MEDS: METOPROLOL SUCCINATE 50 MG TAB XL PO SCH ×2 (09:19→21:17)
[2022-08-03] MEDS: ASPIRIN 81 MG CHEW TAB PO SCH (09:19)
[2022-08-03] MEDS: PANTOPRAZOLE SOD 40 MG TABEC PO SCH (09:19)
[2022-08-03] MEDS: CLOPIDOGREL BISULFATE 75 MG TAB PO SCH (09:20)
[2022-08-03] MEDS: OSELTAMIVIR PHOSPHATE 75 MG CAP PO SCH ×2 (09:20→19:06)
[2022-08-03] MEDS ORDERED: HYDROCODONE/APAP 5MG-325MG TAB PO PRN (13:15)
[2022-08-03] MEDS: SODIUM CHLORIDE 0.9% 1000ML 1,000 ML IV SCH ×2 (15:45→19:56)
[2022-08-03] MEDS ORDERED: VERAPAMIL HCL 2.5 MG/ML 2 ML VIAL ONE (16:31)
[2022-08-03] MEDS ORDERED: FENTANYL CITRATE/PF 100MCG/2 ML INJ ONE (16:31)
[2022-08-03] MEDS ORDERED: MIDAZOLAM HCL 2 MG/2 ML VIAL ONE (16:31)
[2022-08-03] MEDS ORDERED: IOPAMIDOL 370 MG/ML 100 ML INFUS..BTL INJ ONE (16:32)
[2022-08-03] MEDS ORDERED: HEPARIN SOD/SOD CHLORIDE 2,000 ML ONE (16:32)
[2022-08-03] MEDS ORDERED: SODIUM CHLORIDE 0.9% 1000ML 1,000 ML ONE (16:33)
[2022-08-03] MEDS: ATORVASTATIN 40 MG TAB PO SCH (21:17)
[2022-08-04] VITALS (23 sets, daily range): BP systolic 132–184; BP diastolic 73–131
[2022-08-04] MEDS: BENZONATATE 100 MG CAP PO PRN (01:20)
[2022-08-04] MEDS: PANTOPRAZOLE SOD 40 MG TABEC PO SCH (08:49)
[2022-08-04] MEDS: ASPIRIN 81 MG CHEW TAB PO SCH (08:49)
[2022-08-04] MEDS: ENOXAPARIN SOD INJ 40 MG/0.4 ML SYR SC SCH (08:49)
[2022-08-04] MEDS: CLOPIDOGREL BISULFATE 75 MG TAB PO SCH (08:50)
[2022-08-04] MEDS: OSELTAMIVIR PHOSPHATE 75 MG CAP PO SCH ×2 (08:50→16:23)
[2022-08-04] MEDS: METOPROLOL SUCCINATE 50 MG TAB XL PO SCH ×2 (08:50→21:52)
[2022-08-04 17:17] LABS: ANION GAP 13.2 mmol/L (8-16); CALCIUM 8.2 mg/dL (8.4-10.2); CREATININE, SERUM 1.67 mg/dL (0.72-1.25); POTASSIUM 4.2 mmol/L (3.5-5.1)
[2022-08-04] MEDS: ATORVASTATIN 40 MG TAB PO SCH (21:51)
[2022-08-05] VITALS (20 sets, daily range): BP systolic 149–197; BP diastolic 65–113
[2022-08-05] MEDS: HYDRALAZINE HCL 20 MG/ML VIAL IV PRN ×2 (05:22→15:25)
[2022-08-05] MEDS ORDERED: SODIUM CHLORIDE 0.9% 250ML 250 ML ONE (08:05)
[2022-08-05] MEDS: ASPIRIN 81 MG CHEW TAB PO SCH (08:25)
[2022-08-05] MEDS: PANTOPRAZOLE SOD 40 MG TABEC PO SCH (08:26)
[2022-08-05] MEDS: METOPROLOL SUCCINATE 50 MG TAB XL PO SCH (08:26)
[2022-08-05] MEDS: CLOPIDOGREL BISULFATE 75 MG TAB PO SCH (08:26)
[2022-08-05] MEDS: OSELTAMIVIR PHOSPHATE 75 MG CAP PO SCH (08:26)
[2022-08-05] MEDS: ENOXAPARIN SOD INJ 40 MG/0.4 ML SYR SC SCH (08:27)
[2022-08-05] MEDS ORDERED: NIFEDIPINE CR 30 MG TAB PO SCH (15:30)
== END 2022-08-05 15:53 | disposition home or self-care (01) | DRG 871 ==
LOC: FSED 08:39 → ERHOLD 10:11 → ICU 13:20
PROVIDERS: ADMIT Internal Medicine; ATTEND Internal Medicine
PROC: 4A023N7 Measurement of Cardiac Sampling and Pressure, Left Heart, Percutaneous Approach (ICD-10-PCS; principal; 2022-08-01)
PROC: B2111ZZ Fluoroscopy of Multiple Coronary Arteries using Low Osmolar Contrast (ICD-10-PCS; 2022-08-01)
PROC: B2151ZZ Fluoroscopy of Left Heart using Low Osmolar Contrast (ICD-10-PCS; 2022-08-01)
PROC: 3E03329 Introduction of Other Anti-infective into Peripheral Vein, Percutaneous Approach (ICD-10-PCS; 2022-08-01)
DX: A41.9 Sepsis, unspecified organism (principal); I21.4 Non-ST elevation (NSTEMI) myocardial infarction; J10.00 Influenza due to other identified influenza virus with unspecified type of pneumonia; R65.21 Severe sepsis with septic shock; I50.23 Acute on chronic systolic (congestive) heart failure; N17.9 Acute kidney failure, unspecified; I13.0 Hypertensive heart and chronic kidney disease with heart failure and stage 1 through stage 4 chronic kidney disease, or unspecified chronic kidney disease; I16.1 Hypertensive emergency; Z91.199 Patient's noncompliance with other medical treatment and regimen due to unspecified reason; F17.210 Nicotine dependence, cigarettes, uncomplicated; Z82.49 Family history of ischemic heart disease and other diseases of the circulatory system; N18.30 Chronic kidney disease, stage 3 unspecified; Z53.21 Procedure and treatment not carried out due to patient leaving prior to being seen by health care provider; M19.011 Primary osteoarthritis, right shoulder; Z53.29 Procedure and treatment not carried out because of patient's decision for other reasons; I25.10 Atherosclerotic heart disease of native coronary artery without angina pectoris
CPT/HCPCS: 36415; 71045; 76937; 80048; 80053; 80061; 82550; 82553; 83036; 83518; 83605; 83735; 83880; 84100; 84484; 85025; 85730; 87040; 87400; 93005; 93306; 93458; 94640; 94799; 99152; 99153; 99284; C1760; C1887; J0360; J0456; J0696; J1650; J1940; J2250; J2405; J2930; J3010; J7030; J7050; Q9967

== ENCOUNTER 2024-10-13 02:14 | Inpatient (IN) | payer MEDICARE ==
[2024-10-13] VITALS (42 sets, daily range): BP systolic 88–205; BP diastolic 46–127; PULSE 58–111; RESP 11–52; TEMP 97.6–98; O2SAT 91–100
[~2024-10-13] VITALS: Ht 162.6 cm; Wt 56.9 kg
[2024-10-13] MEDS: FUROSEMIDE INJ 10 MG/ML 4 ML VIAL IV ONE ×2 (02:34→03:56)
[2024-10-13 02:53] LABS: BASOPHILS # (AUTO) 0.1 (0.0-0.1); BASOPHILS % 1.1 % (0.0-1.0); EOSINOPHILS # (AUTO) 0.3 (0.0-0.4); EOSINOPHILS % 3.4 % (0.0-6.0); HEMATOCRIT 42.6 % (38.2-49.6); HEMOGLOBIN 13.5 g/dL (14.0-18.0); LYMPHOCYTES # (AUTO) 0.5 (1.0-3.2); LYMPHOCYTES % 6.9 % (18.0-39.1); MEAN CORPUSCULAR HEMOGLOBIN 32.1 pg (28-32); MEAN CORPUSCULAR HGB CONC 31.7 g/dL (31-35); MEAN CORPUSCULAR VOLUME 101.4 fL (81-99); MONOCYTES # (AUTO) 0.7 (0.2-0.8); MONOCYTES % 8.6 % (4.4-11.3); NEUTROPHILS # (AUTO) 6.1 (2.1-6.9); NEUTROPHILS % 79.6 % (38.7-80.0); PLATELET COUNT 291 x10e3/uL (140-360); RED CELL DISTRIBUTION WIDTH 13.4 % (11.7-14.4); WHITE BLOOD COUNT 7.59 x10e3/uL (4.8-10.8)
[2024-10-13 03:07] LABS: ALBUMIN 3.4 g/dL (3.5-5.0); ALBUMIN/GLOBULIN RATIO 0.8 (0.8-2.0); ANION GAP 17.3 mmol/L (8-16); BILIRUBIN,TOTAL 0.8 mg/dL (0.2-1.2); CALCIUM 8.7 mg/dL (8.4-10.2); CREATININE, SERUM 2.16 mg/dL (0.72-1.25); POTASSIUM 4.3 mmol/L (3.5-5.1); TOTAL PROTEIN 7.7 g/dL (6.5-8.1)
[2024-10-13 03:13] LABS: TROPONIN I 0.103 ng/mL (0-0.300)
[2024-10-13] MEDS: HYDRALAZINE HCL 20 MG/ML VIAL IV PRN (04:40)
[2024-10-13] MEDS: FUROSEMIDE INJ 10 MG/ML 4 ML VIAL IV SCH ×2 (08:12→17:09)
[2024-10-13] MEDS: METOPROLOL TARTRATE 25 MG TAB PO SCH (08:12)
[2024-10-13] MEDS ORDERED: DOCUSATE SODIUM 100 MG CAP PO PRN (11:45)
[2024-10-13] MEDS ORDERED: SIMETHICONE 80 MG CHEW PO PRN (11:45)
[2024-10-13] MEDS ORDERED: ONDANSETRON HCL INJ 2MG/ML 2ML 2 MG/ML VIAL IV PRN (11:45)
[2024-10-13] MEDS ORDERED: METOPROLOL TARTRATE INJ 1 MG/ML VIAL IV PRN (11:45)
[2024-10-13] MEDS ORDERED: ALBUTEROL/IPRATROPIUM 3 ML NEB NEB PRN (11:45)
[2024-10-13] MEDS ORDERED: MELATONIN 3 MG TAB PO PRN (11:45)
[2024-10-13] MEDS ORDERED: ACETAMINOPHEN 325 MG TAB PO PRN (11:45)
[2024-10-13] MEDS: CARVEDILOL 12.5 MG TAB PO SCH (11:45)
[2024-10-13] MEDS: ASPIRIN 81 MG ENTERIC COATED PO SCH (12:17)
[2024-10-13] MEDS: NIFEDIPINE CR 30 MG TAB PO SCH (12:18)
[2024-10-13 12:36] LABS: TROPONIN I 0.097 ng/mL (0-0.300)
[2024-10-13 13:01] LABS: CHOL/HDL RATIO 2.2 (3.9-4.7)
[2024-10-13] MEDS: HYDRALAZINE HCL 25 MG TAB PO SCH ×2 (14:16→17:08)
[2024-10-13] MEDS ORDERED: ENOXAPARIN SOD INJ 40 MG/0.4 ML SYR SC SCH (17:00)
[2024-10-13] MEDS: FAMOTIDINE 20 MG TAB PO SCH (17:08)
[2024-10-13] MEDS: ENOXAPARIN 30 MG/0.3 ML SYR SC SCH (17:08)
[2024-10-13] MEDS ORDERED: METOPROLOL TART50 MG PO (18:42)
[2024-10-13 20:30] LABS: TROPONIN I 0.119 ng/mL (0-0.300)
[2024-10-13] MEDS: MUPIROCIN 2% OINT 22 GM TUBE TOP SCH (21:11)
[2024-10-14] VITALS (14 sets, daily range): BP systolic 104–130; BP diastolic 57–81; PULSE 57–68; RESP 12–34; TEMP 97.7–97.9; O2SAT 79–97
[2024-10-14 06:49] LABS: BASOPHILS # (AUTO) 0.1 (0.0-0.1); BASOPHILS % 1.1 % (0.0-1.0); EOSINOPHILS # (AUTO) 0.3 (0.0-0.4); EOSINOPHILS % 5.2 % (0.0-6.0); HEMATOCRIT 37.6 % (38.2-49.6); HEMOGLOBIN 12.3 g/dL (14.0-18.0); LYMPHOCYTES # (AUTO) 0.5 (1.0-3.2); LYMPHOCYTES % 9.4 % (18.0-39.1); MEAN CORPUSCULAR HEMOGLOBIN 31.8 pg (28-32); MEAN CORPUSCULAR HGB CONC 32.7 g/dL (31-35); MEAN CORPUSCULAR VOLUME 97.2 fL (81-99); MONOCYTES # (AUTO) 0.6 (0.2-0.8); MONOCYTES % 10.3 % (4.4-11.3); NEUTROPHILS # (AUTO) 4.1 (2.1-6.9); NEUTROPHILS % 73.6 % (38.7-80.0); PLATELET COUNT 250 x10e3/uL (140-360); RED BLOOD COUNT 3.87 x10e6/uL (4.3-5.7); RED CELL DISTRIBUTION WIDTH 13.2 % (11.7-14.4); WHITE BLOOD COUNT 5.53 x10e3/uL (4.8-10.8)
[2024-10-14 07:15] LABS: ALBUMIN 2.6 g/dL (3.5-5.0); ALBUMIN/GLOBULIN RATIO 0.8 (0.8-2.0); ANION GAP 16.3 mmol/L (8-16); BILIRUBIN,TOTAL 0.8 mg/dL (0.2-1.2); CALCIUM 8.2 mg/dL (8.4-10.2); CREATININE, SERUM 2.18 mg/dL (0.72-1.25); TOTAL PROTEIN 5.8 g/dL (6.5-8.1)
[2024-10-14 07:30] LABS: POTASSIUM 3.3 mmol/L (3.5-5.1)
[2024-10-14] MEDS: SENNOSIDES 8.6 MG TAB PO SCH (09:00)
[2024-10-14] MEDS: ISOSORBIDE MONONITRATE 30 MG TAB CR PO SCH (10:49)
[2024-10-14] MEDS ORDERED: LASIX40 MG PO ×2 (12:36→13:33)
[2024-10-14] MEDS ORDERED: HYDRALAZINE HCL25 MG PO (13:33)
[2024-10-14] MEDS ORDERED: ASPIRIN EC81 MG PO (13:33)
[2024-10-14] MEDS ORDERED: NIFEDIPINE ER30 M1 PO (13:33)
[2024-10-14] MEDS ORDERED: SENOKOT8.6 MG PO (13:33)
[2024-10-14] MEDS ORDERED: Isosorbide Mononitrate PO (13:33)
[2024-10-14] MEDS ORDERED: ISOSORBIDE MONO30 MG PO (13:33)
[2024-10-14] MEDS ORDERED: COREG12.5 MG PO (13:33)
== END 2024-10-14 13:00 | disposition home or self-care (01) | DRG 291 ==
LOC: ER 02:21 → ERHOLD 03:42 → ICU 04:04
PROVIDERS: ADMIT Internal Medicine; ATTEND Internal Medicine
DX: I13.0 Hypertensive heart and chronic kidney disease with heart failure and stage 1 through stage 4 chronic kidney disease, or unspecified chronic kidney disease (principal); I50.41 Acute combined systolic (congestive) and diastolic (congestive) heart failure; I16.1 Hypertensive emergency; N18.30 Chronic kidney disease, stage 3 unspecified; E78.5 Hyperlipidemia, unspecified; I25.10 Atherosclerotic heart disease of native coronary artery without angina pectoris; I25.2 Old myocardial infarction; F17.210 Nicotine dependence, cigarettes, uncomplicated
CPT/HCPCS: 36415; 71045; 80053; 80061; 82550; 83880; 84484; 85025; 93005; 93306; 94799; 99252; 99284; J0360; J1650; J1940

== ENCOUNTER 2024-10-22 22:54 | Inpatient (IN) | payer MEDICARE ==
[~2024-10-22] VITALS: Ht 162.6 cm; Wt 61.2 kg
[~2024-10-22 22:54] MED LIST: ASPIRIN EC81 MG PO; COREG12.5 MG PO; HYDRALAZINE HCL25 MG PO; ISOSORBIDE MONO30 MG PO; Isosorbide Mononitrate PO; LASIX40 MG PO; METOPROLOL TART50 MG PO; NIFEDIPINE ER30 M1 PO; SENOKOT8.6 MG PO
[2024-10-22 23:35] LABS: BASOPHILS % 0.7 % (0.0-1.0); EOSINOPHILS # (AUTO) 0.2 (0.0-0.4); EOSINOPHILS % 2.5 % (0.0-6.0); HEMATOCRIT 33.8 % (38.2-49.6); HEMOGLOBIN 11.2 g/dL (14.0-18.0); LYMPHOCYTES # (AUTO) 0.5 (1.0-3.2); LYMPHOCYTES % 8.1 % (18.0-39.1); MEAN CORPUSCULAR HEMOGLOBIN 31.6 pg (28-32); MEAN CORPUSCULAR HGB CONC 33.1 g/dL (31-35); MEAN CORPUSCULAR VOLUME 95.5 fL (81-99); MONOCYTES # (AUTO) 0.6 (0.2-0.8); MONOCYTES % 10.6 % (4.4-11.3); NEUTROPHILS # (AUTO) 4.7 (2.1-6.9); NEUTROPHILS % 77.8 % (38.7-80.0); PLATELET COUNT 239 x10e3/uL (140-360); RED BLOOD COUNT 3.54 x10e6/uL (4.3-5.7); RED CELL DISTRIBUTION WIDTH 12.7 % (11.7-14.4); WHITE BLOOD COUNT 6.03 x10e3/uL (4.8-10.8)
[2024-10-22 23:54] LABS: ALBUMIN 3.1 g/dL (3.5-5.0); ALBUMIN/GLOBULIN RATIO 0.8 (0.8-2.0); BILIRUBIN,TOTAL 0.3 mg/dL (0.2-1.2); CALCIUM 8.3 mg/dL (8.4-10.2); CREATININE, SERUM 3.08 mg/dL (0.72-1.25); TOTAL PROTEIN 6.8 g/dL (6.5-8.1)
[2024-10-23] VITALS (9 sets, daily range): BP systolic 119–152; BP diastolic 66–76; PULSE 54–70; RESP 16–29; TEMP 97.6–98.6; O2SAT 92–99
[2024-10-23 00:15] LABS: CORONAVIRUS COVID-19 AG NEGATIVE (NEGATIVE); INFLUENZA A AG NEGATIVE (NEGATIVE); INFLUENZA B AG NEGATIVE (NEGATIVE)
[2024-10-23] MEDS: FUROSEMIDE INJ 10 MG/ML 2 ML VIAL IV ONE (00:43)
[2024-10-23 01:19] LABS: CLARITY,URINE CLEAR (CLEAR); COLOR,URINE YELLOW (YELLOW); LEUKOCYTE ESTERASE ,URINE SMALL (NEGATIVE); NITRITE,URINE NEGATIVE (NEGATIVE); PH,URINE 5.5 (5 - 7)
[2024-10-23 01:20] LABS: BILIRUBIN,URINE SMALL (NEGATIVE); GLUCOSE, URINE NEGATIVE (NEGATIVE); KETONES,URINE TRACE (NEGATIVE); PROTEIN,URINE DIPSTICK >=300 (NEGATIVE); URINE UROBILINOGEN 0.2 mg/dL (0.2 - 1)
[2024-10-23 02:04] LABS: BACTERIA,URINE MANY /HPF; WBC,URINE (MAN) 21-50 /HPF (0-5)
[2024-10-23 02:05] LABS: EPITHELIAL CELLS,URINE MODERATE /LPF; RENAL EPITHELIAL CELLS,URINE FEW
[2024-10-23] MEDS ORDERED: ONDANSETRON HCL INJ 2MG/ML 2ML 2 MG/ML VIAL IV PRN (07:30)
[2024-10-23] MEDS ORDERED: ALBUTEROL/IPRATROPIUM 3 ML NEB NEB PRN (07:30)
[2024-10-23] MEDS ORDERED: ACETAMINOPHEN 325 MG TAB PO PRN (07:30)
[2024-10-23] MEDS ORDERED: DOCUSATE SODIUM 100 MG CAP PO PRN (07:30)
[2024-10-23] MEDS ORDERED: SIMETHICONE 80 MG CHEW PO PRN (07:30)
[2024-10-23] MEDS ORDERED: MELATONIN 3 MG TAB PO PRN (07:30)
[2024-10-23 08:33] LABS: CALCIUM 8.1 mg/dL (8.4-10.2); CREATININE, SERUM 3.05 mg/dL (0.72-1.25)
[2024-10-23] MEDS: CARVEDILOL 3.125 MG TAB PO SCH (09:00)
[2024-10-23] MEDS ORDERED: ISOSORBIDE MONONITRATE 30 MG TAB CR PO SCH (09:00)
[2024-10-23] MEDS: HYDRALAZINE HCL 25 MG TAB PO SCH (09:00)
[2024-10-23] MEDS ORDERED: SENNOSIDES 8.6 MG TAB PO SCH (09:00)
[2024-10-23] MEDS: SENNOSIDES 8.6 MG TAB PO SCH (09:26)
[2024-10-23] MEDS: ASPIRIN 81 MG ENTERIC COATED PO SCH (09:26)
[2024-10-23] MEDS: ISOSORBIDE MONONITRATE 20 MG TAB PO SCH (09:27)
[2024-10-23] MEDS: FUROSEMIDE INJ 10 MG/ML 2 ML VIAL IV SCH (09:28)
[2024-10-23] MEDS: HEPARIN SOD (PORCINE) 5,000 UNIT/ML VIAL SC SCH (09:32)
[2024-10-24] VITALS (11 sets, daily range): BP systolic 138–185; BP diastolic 69–95; PULSE 56–70; RESP 18–20; TEMP 97.4–98.6; O2SAT 95–100
[2024-10-24 05:44] LABS: BASOPHILS % 0.7 % (0.0-1.0); EOSINOPHILS # (AUTO) 0.2 (0.0-0.4); EOSINOPHILS % 2.5 % (0.0-6.0); HEMATOCRIT 38.9 % (38.2-49.6); LYMPHOCYTES # (AUTO) 0.6 (1.0-3.2); LYMPHOCYTES % 10.1 % (18.0-39.1); MEAN CORPUSCULAR HEMOGLOBIN 31.6 pg (28-32); MEAN CORPUSCULAR HGB CONC 33.4 g/dL (31-35); MEAN CORPUSCULAR VOLUME 94.4 fL (81-99); MONOCYTES # (AUTO) 0.5 (0.2-0.8); MONOCYTES % 8.6 % (4.4-11.3); NEUTROPHILS # (AUTO) 4.7 (2.1-6.9); NEUTROPHILS % 77.9 % (38.7-80.0); PLATELET COUNT 280 x10e3/uL (140-360); RED BLOOD COUNT 4.12 x10e6/uL (4.3-5.7); RED CELL DISTRIBUTION WIDTH 12.7 % (11.7-14.4); WHITE BLOOD COUNT 6.02 x10e3/uL (4.8-10.8)
[2024-10-24 06:04] LABS: ANION GAP 18.3 mmol/L (8-16); CALCIUM 8.3 mg/dL (8.4-10.2); CREATININE, SERUM 2.93 mg/dL (0.72-1.25)
[2024-10-24 06:05] LABS: POTASSIUM 3.3 mmol/L (3.5-5.1)
[2024-10-24] MEDS: CARVEDILOL 3.125 MG TAB PO ONE (08:35)
[2024-10-24] MEDS: HYDRALAZINE HCL 25 MG TAB PO ONE (08:35)
[2024-10-24] MEDS: CARVEDILOL 3.125 MG TAB PO SCH (16:59)
[2024-10-24] MEDS: HYDRALAZINE HCL 25 MG TAB PO SCH (16:59)
[2024-10-25] VITALS (8 sets, daily range): BP systolic 134–169; BP diastolic 70–84; PULSE 58–65; RESP 18–20; TEMP 97.6–98.6; O2SAT 96–100
[2024-10-25 06:44] LABS: ANION GAP 17.3 mmol/L (8-16); CALCIUM 8.4 mg/dL (8.4-10.2); CREATININE, SERUM 2.74 mg/dL (0.72-1.25)
[2024-10-25 06:46] LABS: POTASSIUM 3.3 mmol/L (3.5-5.1)
[2024-10-26] VITALS: BP 156/66; PULSE 63; RESP 18; TEMP 97.8; O2SAT 100
[2024-10-26 06:11] LABS: ANION GAP 16.1 mmol/L (8-16); CALCIUM 8.2 mg/dL (8.4-10.2); CREATININE, SERUM 2.71 mg/dL (0.72-1.25)
[2024-10-26 06:15] LABS: POTASSIUM 3.1 mmol/L (3.5-5.1)
[2024-10-26 07:16] VITALS: PULSE 67; RESP 18; O2SAT 98
[2024-10-26 08:00] VITALS: BP 170/91; PULSE 70; RESP 18; TEMP 98.4; O2SAT 98
[2024-10-26 08:27] VITALS: BP 170/91; PULSE 70; RESP 18; TEMP 98.4; O2SAT 100
[2024-10-26] MEDS ORDERED: SODIUM BICARBO650 MG PO (08:51)
[2024-10-26] MEDS ORDERED: LASIX20 MG PO (08:51)
[2024-10-26] MEDS ORDERED: CARVEDILOL12.5 MG PO (08:51)
[2024-10-26] MEDS: SODIUM BICARBONATE 650 MG TAB PO SCH (09:23)
[2024-10-26] MEDS: ISOSORBIDE MONONITRATE 20 MG TAB PO SCH (09:24)
[2024-10-26] MEDS: CARVEDILOL 12.5 MG TAB PO SCH (09:24)
[2024-10-26] MEDS: HYDRALAZINE HCL 25 MG TAB PO SCH (09:25)
[2024-10-26 10:21] VITALS: PULSE 69; RESP 18; O2SAT 97
[2024-10-26 12:11] VITALS: BP 146/76; PULSE 56; RESP 20; TEMP 97.7; O2SAT 98
[2024-10-26] MEDS: POTASSIUM CHLORIDE 10MEQ EA PO ONE (12:16)
== END 2024-10-26 14:00 | disposition home or self-care (01) | DRG 291 ==
LOC: ER 22:57 → MED/SURG3 10-23 00:32 → OBSVTOIN 10-23 00:32 → UNDOADMIN 10-23 00:32 → ERHOLD 10-23 00:32 → ER 10-23 08:59
PROVIDERS: ADMIT Internal Medicine; ATTEND Internal Medicine
DX: I13.0 Hypertensive heart and chronic kidney disease with heart failure and stage 1 through stage 4 chronic kidney disease, or unspecified chronic kidney disease (principal); I50.43 Acute on chronic combined systolic (congestive) and diastolic (congestive) heart failure; N17.9 Acute kidney failure, unspecified; E87.1 Hypo-osmolality and hyponatremia; N39.0 Urinary tract infection, site not specified; J44.9 Chronic obstructive pulmonary disease, unspecified; N18.30 Chronic kidney disease, stage 3 unspecified; R00.1 Bradycardia, unspecified; I25.10 Atherosclerotic heart disease of native coronary artery without angina pectoris; Z11.52 Encounter for screening for COVID-19; Z79.82 Long term (current) use of aspirin; F17.210 Nicotine dependence, cigarettes, uncomplicated; Z82.49 Family history of ischemic heart disease and other diseases of the circulatory system
CPT/HCPCS: 36415; 71045; 80048; 80053; 81001; 83880; 84484; 85025; 94799; 99284; J1644; J1940; J2543